=== PATIENT | female | born 1970 | race Two or more races ===

== ENCOUNTER 2023-05-08 08:06 | Outpatient (OUT) | payer BC, SELFPAY ==
[2023-05-08 08:39] LABS: Basophils Absolute Auto 0.1 10^3/uL (0.0-0.1); Basophils Percent Auto 0.7 % (0.2-2.0); Eosinophils Absolute Auto 0.2 10^3/uL (0.0-0.7); Eosinophils Percent Auto 2.6 % (0.9-7.0); Hematocrit 37.6 % (36.0-48.0); Hemoglobin 12.4 g/dL (12.0-16.0); Immature Granulocytes Abs Auto 0.03 10^3/uL (0.00-0.03); Immature Granulocytes Pct Auto 0.3 % (0.0-0.5); Lymphocytes Absolute Auto 1.8 10^3/uL (1.2-3.8); Lymphocytes Percent Auto 19.9 % (20.5-60.0); Mean Corpuscular Hemoglobin 32.5 pg (26.7-34.0); Mean Corpuscular Volume 98.4 fL (81.0-99.0); Mean Platelet Volume 9.2 fL (9.5-13.5); Monocytes Absolute Auto 0.7 10^3/uL (0.3-0.8); Monocytes Percent Auto 7.8 % (1.7-12.0); Neutrophils Absolute Auto 6.1 10^3/uL (1.4-6.5); Neutrophils Percent Auto 68.7 % (43.0-75.0); Platelet Count 386 10^3/uL (150-450); Red Blood Count 3.82 10^6/uL (4.20-5.40); White Blood Count 8.9 10^3/uL (4.0-11.0)
[2023-05-08 08:58] LABS: Estimated Average Glucose 114 mg/dL; Glycohemoglobin A1C 5.6 % (4.5-6.2)
[2023-05-08 13:42] LABS: Alanine Aminotransferase 113 U/L (14-59); Albumin Level 3.6 g/dL (3.4-5.0); Alkaline Phosphatase 84 U/L (46-116); Anion Gap 13.2; Aspartate Amino Transferase 31 U/L (15-37); BUN Creatinine Ratio 23.6; Bilirubin Total 0.4 mg/dL (0.2-1.0); Calcium 8.6 mg/dL (8.5-10.1); Carbon Dioxide 25.7 mmol/L (21.0-32.0); Chloride 104 mmol/L (98-107); Chol HDL Ratio 4.1; Cholesterol 236 mg/dL (<=200); Estimated GFR (African America >60 (>=60); Estimated GFR (Non-African Ame >60 (>=60); Free T3 2.72 pg/mL (2.18-3.98); Globulin 3.7 g/dL; Glucose 93 mg/dL (74-106); HDL Cholesterol 57 mg/dL (40-60); Potassium 3.9 mmol/L (3.5-5.1); Sodium 139 mmol/L (136-145); Thyroid Stimulating Hormone 1.668 uIU/mL (0.358-3.740); Total Protein 7.3 g/dL (6.4-8.2); Triglycerides 219 mg/dL (<=150); VLDL CHOLESTEROL 43.8 mg/dL
== END 2023-05-08 08:07 | disposition home or self-care (01) ==
LOC: LAB 08:09
PROVIDERS: PCP Family Medicine; Visit Provider Family Medicine
DX: Z00.00 Encounter for general adult medical examination without abnormal findings (principal)
CPT/HCPCS: 36415; 80053; 80061; 83036; 83540; 84436; 84443; 84481; 85025

== ENCOUNTER 2023-05-10 16:07 | Outpatient (REF) | payer BC, SELFPAY ==
[2023-05-11 16:36] LABS: Occult Blood Negative
== END 2023-05-10 16:08 | disposition home or self-care (01) ==
LOC: LAB 16:07
PROVIDERS: PCP Family Medicine; Visit Provider Family Medicine
DX: Z00.00 Encounter for general adult medical examination without abnormal findings (principal)
CPT/HCPCS: G0328

== ENCOUNTER 2023-12-06 09:44 | Outpatient (OUT) | payer BC, SELFPAY ==
[2023-12-06 10:18] LABS: Estimated Average Glucose 120 mg/dL; Glycohemoglobin A1C 5.8 % (4.5-6.2)
[2023-12-06 10:37] LABS: Alanine Aminotransferase 29 U/L (14-59); Albumin Globulin Ratio 0.9; Albumin Level 3.5 g/dL (3.4-5.0); Alkaline Phosphatase 76 U/L (46-116); Anion Gap 13.2; Aspartate Amino Transferase 21 U/L (15-37); BUN Creatinine Ratio 26.1; Bilirubin Total 0.3 mg/dL (0.2-1.0); Carbon Dioxide 28.6 mmol/L (21.0-32.0); Chloride 102 mmol/L (98-107); Chol HDL Ratio 3.7; Cholesterol 250 mg/dL (<=200); Estimated GFR (African America >60 (>=60); Estimated GFR (Non-African Ame >60 (>=60); Free T3 2.66 pg/mL (2.18-3.98); Globulin 3.8 g/dL; Glucose 89 mg/dL (74-106); HDL Cholesterol 68 mg/dL (40-60); Potassium 3.8 mmol/L (3.5-5.1); Sodium 140 mmol/L (136-145); Thyroid Stimulating Hormone 1.176 uIU/mL (0.358-3.740); Total Protein 7.3 g/dL (6.4-8.2); Triglycerides 186 mg/dL (<=150); VLDL CHOLESTEROL 37.2 mg/dL
[2023-12-06 16:04] LABS: Basophils Absolute Auto 0.1 10^3/uL (0.0-0.1); Basophils Percent Auto 0.8 % (0.2-2.0); Eosinophils Absolute Auto 0.2 10^3/uL (0.0-0.7); Eosinophils Percent Auto 3.8 % (0.9-7.0); Hematocrit 37.9 % (36.0-48.0); Hemoglobin 12.3 g/dL (12.0-16.0); Immature Granulocytes Abs Auto 0.02 10^3/uL (0.00-0.03); Immature Granulocytes Pct Auto 0.3 % (0.0-0.5); Lymphocytes Absolute Auto 1.4 10^3/uL (1.2-3.8); Lymphocytes Percent Auto 22.2 % (20.5-60.0); Mean Corpuscular HGB Conc 32.5 g/dL (29.9-35.2); Mean Corpuscular Hemoglobin 32.5 pg (26.7-34.0); Mean Platelet Volume 9.8 fL (9.5-13.5); Monocytes Absolute Auto 0.5 10^3/uL (0.3-0.8); Monocytes Percent Auto 8.3 % (1.7-12.0); Neutrophils Absolute Auto 4.1 10^3/uL (1.4-6.5); Neutrophils Percent Auto 64.6 % (43.0-75.0); Platelet Count 423 10^3/uL (150-450); Red Blood Count 3.79 10^6/uL (4.20-5.40); Red Cell Distribution Width 13.1 % (11.0-15.0); White Blood Count 6.4 10^3/uL (4.0-11.0)
[2023-12-07 09:10] LABS: Insulin 9.3 uIU/mL (2.6-24.9)
== END 2023-12-06 09:45 | disposition home or self-care (01) ==
LOC: LAB 09:46
PROVIDERS: PCP Family Medicine; Visit Provider Family Medicine
DX: Z00.00 Encounter for general adult medical examination without abnormal findings (principal)
CPT/HCPCS: 36415; 80053; 80061; 82306; 83036; 83525; 83540; 84436; 84443; 84481; 85025

== ENCOUNTER 2025-01-22 15:42 | Outpatient (OUT) | payer BC, SELFPAY ==
--- OUTSIDE RECORDS SUMMARY | 2023-12-06 09:23 | XMS_ITS ---
Author Organization The [facility] in [place] Address [address] [place] [address] Care Team Providers Care Edging Machine Operator Name Role Phone Michael Flores Primary Care Provider [phone] VERONICA FLORES Unavailable [phone] REASON FOR VISIT Lab results Encounters Encounter Location Date Provider Diagnosis [facility] [address] [place] [address] 12/06/2023 VERONICA FLORES Plan Of Treatment No Information Progress Notes * Laron WALLOB:[birth year] (53 yo F)Acc No.[id number]:12/06/2023 Patient: Leah BAUTISTAJessica CORONA :1970 A ge:53 Y S ex:Female Address:[address] [place] [id number] * true * Date: Generated for Fletcher renae/Kathie/eTransmitting on: 0 01/22/2025 03:49 PM EDT
--- OUTSIDE RECORDS SUMMARY | 2023-12-12 05:36 | XMS_ITS ---
Author Organization The [facility] in [place] Address [address] [place] [address] Care Team Providers Care Buggy Driver Name Role Phone Michael Flores Primary Care Provider VERONICA FLORES Unavailable [phone] Reason For Referral Diagnosis 1 Colon cancer screeni (Z12.11) Referral Organization [facility] Referring Provider First Name VERONICA Referring Provider Last Name MARK Referring Provider Speciality Family Med josy Referred Provider Cornelius Hadley Referred Provider Specialty General Surg dequan Referral Priority Routine REASON FOR VISIT colonoscopy Encounters Encounter Location Date Provider Diagnosis [facility] [address] [place] [address] 12/12/2023 VERONICA FLORES Colon cancer screening Z12.11 Assessments Encounter Date Diagnosis (ICD Code) Assessment Notes Treatment Notes Treatment Clinical Notes Section Notes 12/12/2023 Colon cancer screening (ICD-10 - Z12.11) Plan Of Treatment Referrals Referral Date Details 12/12/2023 12/12/2023Cornelius Progress Notes * Laron WALLOB:[birth year] (53 yo F)Acc No.[id number]:12/12/2023 Patient: Jessica CHILDRESS :1970 A ge:53 Y S ex:Female Address:[address] [place] [phone] Subjective: * Chief Complaints: * C olonoscopy * Medical History: * Surgical History: * Hospitalization/Major Diagno stic Procedure: * Medications: Objective: * Vitals: * Physical Examination: Assessment: * Assessment: 1. C on cancer screening - Z12.11 (Primary) Plan: * Treatment: * Procedure Codes: * true * Date: Generated for Fletcher renae/Kathie/[place] on: 0 01/22/2025 03:49 PM EDT Consultation Request Notes Referral Date Referring Provider Referred Provider Not es 12/12/2023 VERONICA FLORES Michael
--- OUTSIDE RECORDS SUMMARY | 2025-01-22 10:00 | XMS_ITS ---
Author Organization The [facility] in [place] Address [address] [place] [address] Care Team Providers Care Certified Diabetes Educator Name Role Phone DerekmengMichael Primary Care Provider Allergies No Known Allergies REASON FOR VISIT hit head on sunday on bathroom sink above the left taoism- tingling in face and arms since then, Has also has neck pain on the right side and moves down to the shoulder area Medications Medication SIG (Take, Route, Fr equency, Duration) Notes Start Date End Date Status Estradiol 1 mg TAKE 1 TABLET DAILY Active Social History Tobacco Use: Social History Observation Description Date Details (start date - stop date) Never Smoker NA - NA Tobacco Use/Smoking Question Answer Notes Patient is a nonsmoker Problems Problem Type SNOMED Code ICD Code Onset Dates Problem Status W/U Status Risk Notes Problem Concussion injury of brain (082340125) Concussion (S06.0X9A) Active confirmed Vital Signs Blood pressure systolic 152 mm Hg 01/23/20 25 Blood pressure diastolic 96 mm Hg 025 Height 63 in 01/22/2025 Weight 157.2 lbs 01/22/2025 BMI 27.84 kg/m2 01/22/2025 Encounters Encounter Location Date Provider Diagnosis [facility] [address] [place] [address] 01/22/2025 Michael Ramirez Concussion S06.0X9A Assessments Encounter Date Diagnosis (ICD Code) Assessment Notes Treatment Notes Treatment Clinical Notes Section Notes 01/22/2025 Concussion (ICD-10 - S06.0X9A) Plan Of Treatment Pending Test Test Name Order Date CT Brain w/o Contrast 01/22/2025 Progress Notes * Laron WALLOB:[birth year] (54 yo F)Acc No.[id number]:01/22/2025 UNLOCKED PROGRESS NOTE Progress Note Patient: Jessica CHILDRESS Provider: Giovani Ramirez ([facility])MD :1970 A ge:54 Y S ex:Female Date:01/22/2025 Address:[address] [place], [place] [id number] Check In:02:48 PM ESTCheck O ut:03:27 PM EST Subjective: * Chief Complaints: * 1 . Hit head on sunday on bathroom sink above the left taoism- tingling in face and arms since then. 2. Has also has neck pain on the right side and moves down to the shoulder area. * HPI: D epression Screening: PHQ-2 (2015 Edition) L ittle interest or pleasure in doing things??Not at all F eeling down, depressed, or hopeless? N ot at all T otal Score 0 tinglin in area of swelling after hitting head n- 5 days out - stil has headahc dnad now withpai and tinglin in arm and legs s with sym,ptosm 4 says - out- needs CT head. * ROS: E ENT: hearing changes d enies. v isual changes d enies.?non-healing mouth sores d enies. s wollen glands or neck lumps d enies. h oarseness d enies. s ore throat d enies. d ifficulty swallowing d enies. n ose bleeds d enies. n chente congestion d enies. e ar ache d enies. e ar discharge?denies. r inging in ears d enies. l ight sensitivity d enies. e ye pain d enies. b lurring d enies. e ye irritation d enies. d ouble vision d enies.?vision loss d enies. G eneral/Constitutional: Sweats: D enies. F atigue d enies. S leep problems d enies. A norexia d enies. M alaise d enies. W eight loss d enies.?Fatigue or Weakness d enies. F ever or Chills d enies. C ardiovascular: Shortness of Breath w/lying flat d enies. L ightheadedness/dizziness d enies. C hest tightness/ heavy pressure d enies. S welling of legs, ankles, or feet d enies. W aking up with shortness of breath d enies. C hest pain denies. P alpitations d enies. W eight gain d enies. R espiratory: Chronic or frequent cough d enies. C oughing up blood?denies. D ifficulty breathing d enies. P roductive cough d enies. S noring?denies. S hortness of breath that awakens from sleep (PND) d enies. C hest pain d enies. S putum production d enies. W heezing d enies. M usculoskeletal: Joint pain d enies. J oint Fluid d enies. B ack pain d enies. K nee pain d enies. N debora pain d enies. J oint Stiffness d enies. M uscle cramps d enies. W eakness of muscles d enies. A rthritis d enies. M uscle aches d enies. P ain in shoulder(s) d enies. S wollen joints d enies. * Medical History: K NEE DERANGEMENT, LEIOMYOMA, VERTIGO, SIALOLITHIASIS. * Surgical History: C HOLECYSTECTOMY , Hysterectomy- partial , Knee scopes- right , colonoscopy 03-17-24. * Hospitalization/Major Diagno stic Procedure: D enies Past Hospitalization. * Family History: F ather: alive, Hypercholesterolemia, diagnosed with Unspecified heart disease. M other: alive, Uterine and breast cancer, Hypercholesterolemia, diagnosed with Unspecified heart disease. Sister(s): alive, Vertigo, scoliosis. S on(s): alive. D aughter(s): alive. 4 sister(s) . 2 son(s) , 1 daughter(s) . . * Social History: T obacco Use: T obacco Use/Smoking P atient is a n onsmoker * Medications: T aking Estradiol 1 mg Tablet TAKE 1 TABLET DAILY , Medication List reviewed and reconciled with the patient * Allergies: N .K.D.A. Objective: * Vitals: W t:157.2lbs, Ht: 63 in, BP:152/96mm Hg, BMI:27.84Index, Ht-cm: 160.02 cm, Wt-k.31 kg. * Examination: P hysical Exam: GENERAL: w ell developed, well nourished, in no acute distress. HEAD: n ormocephalic/atraumatic. EYES: p upils equal, round and reactive to light, conjunctivae and sclerae normal. EARS: n o deformity or lesion of external ear, canals and TM appear normal bilaterally, TM's intact, not inflamed with normal light reflex, hearing grossly normal to conversational speech. NOSE: n o deformity, discharge, inflammation, or lesions.? MOUTH: m ucous membranes moist, normal oropharynx and posterior pharynx without lesions or exudates, tongue normal, dentition normal. NECK: n debora supple, no masses or palpable cervical nodes, trachea midline, thyroid without nodules, masses, tenderness, or enlargement. CHEST: n o chest wall deformity, no chest wall tenderness.? LUNGS: n ormal respiratory effort and clear to auscultation, no wheezes, rales, or rhonchi, good air exchange. CARDIO: r egular rate and rhythm, normal S1 and S2, nor murmur, rub, or gallop. PULSES: n ormal capillary refill. ABDOMEN: s oft, non-distended, non-tender, no masses. MUSCULOSKELETAL: n o deformity or scoliosis noted, normal range of motion, joints normal, no erythema, edema, effusion, or ecchymosis. EXTREMITY: n o clubbing, cyanosis, edema, or deformity with normal ROM in both upper and lower bilateral extremities. NEUROLOGIC: g rossly normal. SKIN: n o rashes, ulcerations, or suspicious lesions. LYMPH NODES: n o cervical adenopathy, nodes normal. MENTAL STATUS: a lert and oriented x3, normal mood and affect. Assessment: * Assessment: 1. C oncussion - S06.0X9A (Primary) Plan: * Treatment: * Preventive Medicine: Screenings/Counseling: B RI ACTION PLAN Above Normal BMI Follow-up D ietary management education, guidance, and counseling * * Electronic signature of Michael Ramirez MD, [phone] on 01/22/2025 at 03:49 PM EDT Sign off status: Pending Visit Status: C HK (Check Out) * Provider: Giovani Ramirez ([facility])MD Date: 0 01/22/2025 Generated for Printi ng/Faxing/eTransmitting on: 0 01/22/2025 03:49 PM EDT History and Physical Notes * HPI (History of Present Illness) Category Sub-Category Detail Notes Category Not es Depression Screening PHQ-2 (2015 Edition) Little interest or pleasure in doing things?: Not at all tinglin in area of swelling after hitting head n- 5 days out - stil has headahc dnad now withpai and tinglin in arm and legs s with sym,ptosm 4 says - out- needs CT head Feeling down, depressed, or hopeless?: N ot at all Total Score: 0 Examination Category Sub-Category Detail Notes Category Not es Physical Exam GENERAL: well developed, well nourished, in no acute distress HEAD: normocephalic/atraum atic EYES: pupils equal, round and reactive to light, conjunctivae and sclerae normal EARS: no deformity or lesi on of external ear, canals and TM appear normal bilaterally, TM's intact, not inflamed with normal light reflex, hearing grossly normal to conversational speech NOSE: no deformity, discha rge, inflammation, or lesions MOUTH: mucous membranes cass st, normal oropharynx and posterior pharynx without lesions or exudates, tongue normal, dentition normal NECK: neck supple, no mass es or palpable cervical nodes, trachea midline, thyroid without nodules, masses, tenderness, or enlargement CHEST: no chest wall deform ity, no chest wall tenderness LUNGS: normal respiratory e ffort and clear to auscultation, no wheezes, rales, or rhonchi, good air exchange CARDIO: regular rate and rhy thm, normal S1 and S2, nor murmur, rub, or gallop PULSES: normal capillary ref ill ABDOMEN: soft, non-distended, non-tender, no masses RECTAL: MUSCULOSKELETAL: no deformity or scol iosis noted, normal range of motion, joints normal, no erythema, edema, effusion, or ecchymosis EXTREMITY: no clubbing, cyanosi s, edema, or deformity with normal ROM in both upper and lower bilateral extremities NEUROLOGIC: grossly normal SKIN: no rashes, ulceratio ns, or suspicious lesions LYMPH NODES: no cervical adenopat hy, nodes normal MENTAL STATUS: alert and oriented x 3, normal mood and affect
--- OUTSIDE RECORDS SUMMARY | 2025-01-22 15:49 | XMS_ITS | Clinical Summary ---
Author Organization [facility] Address [id number] [address] [place] [address] Care Team Providers Care Ice Grinder Name Role Phone Unavailable Primary Care Provider Unavailabl e Social History Tobacco Use Types Packs/Day Years Used Date Smoking Tobacco: Never Assessed Childcare Answer Date Recorded Childcare Unknown 06/09/2019 Employment Answer Date Recorded Employment Unknown 06/09/2019 Purpose - Life Answer Date Recorded Purpose and direction in life Unknown Comments Unknown Sex and Gender Information Value Date Recorded Sex Assigned at Not on file Legal Sex Female 10:28 AM EDT Gender Identity Not on file Sexual Orientation Not on file Plan of Treatment Not on file Medical Devices Not on file
--- OUTSIDE RECORDS SUMMARY | 2025-01-22 15:49 | XMS_ITS | Clinical Summary ---
Author Organization [facility] Address [address] [place] [address] Care Team Providers Care Movie Operator Name Role Phone Unavailable Primary Care Provider Unavailabl e Social History Tobacco Use Types Packs/Day Years Used Date Smoking Tobacco: Never Assessed Comments Unknown Sex and Gender Information Value Date Recorded Sex Assigned at Not on file Legal Sex Female 6:47 PM EDT Gender Identity Not on file Sexual Orientation Not on file Last Filed Vital Signs Vital Sign Reading Time Taken Comments Blood Pressure 130/82 12/20/2022 12:00 PM EDT Pulse - - Temperature - - Respiratory Rate - - Oxygen Saturation - - Inhaled Oxygen Concentration - - Weight 69.4 kg (153 lb) 12/20/2022 12:00 PM EDT Height 162.6 cm (5' 4 ) 12/20/2022 12:00 PM EDT Body Mass Index 26.26 12/20/2022 12:00 PM EDT Plan of Treatment Not on file Insurance [facility]
--- OUTSIDE RECORDS SUMMARY | 2025-01-22 15:49 | XMS_ITS | Patient Health Record ---
Author Organization The [facility] in [place] Address [address] [place] [address] Care Team Providers Care Coremaker Experimental Name Role Phone Michael Ramirez Primary Care Provider [phone] Allergies No Known Allergies Reason For Referral No Information Medications Medication SIG (Take, Route, Fr equency, Duration) Notes Start Date End Date Status Estradiol 1 mg TAKE 1 TABLET DAILY Active Social History Tobacco Use: Social History Observation Description Date Details (start date - stop date) Never Smoker NA - NA Tobacco Use/Smoking Question Answer Notes Patient is a nonsmoker Alcohol Screen (Audit-C) Question Answer Notes Did you have a drink containing alcohol in the p ast year? Yes How often did you have a dri nk containing alcohol in the past year? Monthly (2 points) Points 2 Interpretation Negative AUDIT-C (Standard) Question Answer Notes Did you have a drink contain ing alcohol in the past year? Yes How often did you have six o r more drinks on one occasion in the past year? Never (0 point) How many drinks did you have on a typical day when you were drinking in the past year? 1 or 2 drinks (0 point) How often did you have a dri nk containing alcohol in the past year? 2 to 4 times a month (2 points) Points 2 Interpretation Negative Problems Problem Type SNOMED Code ICD Code Onset Dates Problem Status W/U Status Risk Notes Problem Well adult (717895574) Well adult (Z00.00) Active confirmed Problem Shingles (3680095) Shingles (B02.9) Active confirmed Problem Concussion injury of brain (038481946) Concussion (S06.0X9A) Active confirmed Problem Peripheral vertigo (76858545) Peripheral vertigo (H81.399) Active confirmed Problem Derangement of knee (06051166) Knee derangement (M23.90) Active confirmed Problem 00929291 Pure hypercholesterole vidya, unspecified (E78.00) Active confirmed Problem Bizarre leiomyoma (32511760) 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 Problem Parotid sialolithiasis (706656557) 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) Active confirmed Vital Signs Blood pressure diastolic 96 mm Hg 01/22/2025 Height 63 in 01/22/2025 Blood pressure systolic 152 mm Hg 01/22/2025 Weight 157.2 lbs 01/22/2025 BMI 27.84 kg/m2 01/22/2025 Encounters Encounter Location Date Provider Diagnosis [facility] [address] [place] [address] 01/22/2025 Michael Hoy Concussion S06.0X9A Assessments Encounter Date Diagnosis (ICD Code) Assessment Notes Treatment Notes Treatment Clinical Notes Section Notes 01/22/2025 Concussion (ICD-10 - S06.0X9A) Plan Of Treatment Pending Test Test Name Order Date CMP (COMPLETE METABOLIC PANEL) 3 CMP (COMPLETE METABOLIC PANEL) 4 HEMOGLOBIN A1C (GLYCO) 04/30/2023 HEMOGLOBIN A1C (GLYCO) 12/06/2023 IRON, TOTAL 04/30/2023 IRON, TOTAL 12/06/2023 LIPID PANEL (CHOL/TRIG/HDL/LDL) 12/06/19 24 LIPID PANEL (CHOL/TRIG/HDL/LDL) 04/30/20 23 CBC WITH DIFF 04/30/2023 CBC WITH DIFF 12/06/2023 VITAMIN D, 25 LEVEL (TOTAL) 12/06/2023 Insulin Level 12/06/2023 FSH+LH+Prog+E2 12/06/2023 STOOL OCCULT BLOOD 04/30/2023 CT Brain w/o Contrast 01/22/2025 LIPID PROFILE 05/08/2023 THYROID PANEL (T4/TSH/FREE T3) 4 THYROID PANEL (T4/TSH/FREE T3) 3 Insurance Providers Payer Name Payer Address Payer Phone Subscriber Number Group Number Insured Name Patient Relationship to Insured Coverage Start Date Coverage End Date [facility] [address] [place] [address] [id number] Ethan Wall Spouse - patient is the spouse of the insured 3 Medical (General) History Medical History History ICD Code KNEE DERANGEMENT LEIOMYOMA VERTIGO SIALOLITHIASIS Surgical History Surgery Date(Month/Year) colonoscopy 03-17-24 Knee scopes- right Hysterectomy- partial CHOLECYSTECTOMY
--- NOTE | 2025-01-22 16:15 | CT_ITS ---
The [address] [address] Patient Name: CARINE STEVENS MRN: [id number] date: 1970 Sex: F Assigned Patient Location: CT Current Patient Location: CT Accession/Order Number: [id number] Exam Date: 01/22/2025 17:11 Report Date: 01/22/2025 17:13 At the request of: VERONICA FLORES MD Procedure: CT head/brain wo con Unenhanced head CT TECHNIQUE: Contiguous axial imaging of the head. The CT exam was performed using one or more the following dose reduction techniques: Automated exposure control, adjustment of the MA and/or Kv according to patient size, or use of the iterative reconstruction technique. COMPARISON: 09/18/2022 HISTORY: Headache and dizziness. Head injury VENTRICLES: Within normal limits ATROPHY: None BRAIN PARENCHYMA: Adequate guevara-white matter differentiation identified. HEMORRHAGE: None HERNIATION: No mass effect or herniation INFARCTION: No recent vascular distribution infarction is seen. EXTRA-AXIAL FLUID COLLECTIONS None MIDBRAIN: Unremarkable MAGGIE: Unremarkable MEDULLA: Unremarkable SINUSES: Unremarkable ORBITS: Grossly unremarkable MASTOIDS: Unremarkable BONY STRUCTURES Intact ADDITIONAL FINDINGS: CT/CT head/brain wo con IMPRESSION: No acute findings. Impression dictated by: Darwin Lomeli M.D. 01/22/2025 5:13 PM Dictation Location: [place] [address] Electronically authenticated by: [id number] Y Date: 01/22/2025 17:13
--- OUTSIDE RECORDS SUMMARY | 2025-01-22 16:18 | XMS_ITS | CCD ---
Author Organization [facility] Care Team Providers Care Chief Substation Operator Name Role Phone ASHLEY ., DR MARTIN Primary Care Unavailable FAWSHAIKH Jennie GRAF Admitting Unavailable FACYN BROCKIKH H Attending Unavailable ELIZABETH REES Consulting Unavailable TAYLOR RINALDI Consulting Unavailable ANTHONY AZUL Consulting Unavailable KARASIK ., DR SAUER Admitting Unavailabl e KARASIK ., DR SAUER Attending Unavailabl e ASHLEY ., DR MARTIN Primary Care Unavailable KARASIK ., DR SAUER Consulting Unavailabl e KAREVELINK ., DR SAUER Admitting Unavailabl e KARASIK ., DR SAUER Attending Unavailabl e ASHLEY ., DR MARTIN Primary Care Unavailable KARASIK ., DR SAUER Consulting UnavailVeronica Tracey Primary Care Physician Cornelius BAI Referring Unavailable Cornelius BAI Attending Unavailable Cornelius BAI Admitting Unavailable Cornelius BAI Attending Unavailable Veronica Ramirez Referring Unavailable Allergies Allergy Classification Reported Allergen(s) Allergy Type Date of Onset Reaction(s) Facility (1 source) No Known Medication Allergies; Translations: [No Known Medication Allergies] Propensity to adverse reactions (disorder) [facility] Repository Medications Current Medications Medication Drug Class(es) Dates Sig (Normalized) Sig (Original) estradiol 1 mg oral tablet (2 sources) Estrogen Start: 12-19-2023 estradiol 1 mg Tab 1 mg = 1 tab(s), Oral, Daily, 90 tab(s), 0 Refill(s), Refills(s) 0 Start Date: 12/19/23 Status: Ordered Problems Active Problems Problem Classification Problem Date Documented Date Episodic/Chronic Disorders of lipid metabolism (2 sources) Pure hypercholesterolemia 12-19-2023 Chroni c Immunizations and screening for infectious disease (1 source) Encounter for screening for human papillomavirus (HPV); Translations: [ENC SCREENING HUMAN PAPILLOMAVIRUS] Onset: 3 Episodic Other nutritional; endocrine; and metabolic disorders (2 sources) Overweight 12-19-2023 Episodic Other nutritional; endocrine; and metabolic disorders (2 sources) Overweight in adulthood with body mass index of 25 or more but less than 30 12-25-2023 Episodic Other screening for suspected conditions (not mental disorders or infectious disease) (6 sources) Encounter for screening for malignant neoplasm of cervix; Translations: [Screening for malignant neoplasm of colon done] Onset: 3 Episodic Unclassified (2 sources) Patient encounter status 12-25-2023 Past or Other Problems Problem Classification Problem Date Documented Da te Episodic/Chronic Other nervous system disorders (4 sources) Paresthesia of skin; Translations: [PARESTHESIA OF SKIN] Onset: 09-19-2022 Episodic Results Test Name Value Interpretation Reference Range Facility Reminderson 03-18-2024 Reminders Reminders From: Shiloh Braga LPN To: N - Clinical; Sent: 03/18/2024 07:39:18 EDT Show up: 02/14/2034 07:00:00 EDT Subject: colonoscopy recall Due Date/Time: 03/17/2034 07:00:00 EDT Reminder/Recall Patient due for screening colonoscopy 03/17/2034. Normal [facility] Discharge Instructionson Discharge Instructions Discharge Instructions CARINE STEVENS :1970 Visit Date:03/17/2024 Inpatient Discharge Instructions Your Care Team Admitting Physician - Cornelius BAI MD Referring Physician - Cornelius BAI MD Reason for Your Visit SCREENING Your Diagnosis Encounter for screening for malignant neoplasm of colon This Is Your Medications List estradiol (estradiol 1 mg Tab) Procedure History Colonoscopy (03/17/2024), Arthroscopy of knee, Cervical biopsy, Cholecystectomy, Vaginal hysterectomy. What to do next Instructions From Your Doctor Event Name Event Result Discharge Activity Resume normal activities in 24 hours, Arrange for a responsible adult supervision for 24 hours Discharge Restrictions No driving for 24 hrs, Do not operate machinery or tools, Do not make important decisions for 24 hours, Do not drink alcoholic beverages for 24 hours Discharge Diet(s) Regular Call Your Doctor For Persistent or heavy bleeding, Temperature above 101.5 degrees, Severe pain at the operative site, Persistent vomiting Discharge Instructions Discharge Instructions New Follow Up Appointments after Discharge Follow Up with Cornelius BAI When: Only if needed Where: [address], [address] [facility] [address] [place] [address]- Business (1) Medications What How Much When Instructions Next Dose Unchanged estradiol (estradiol 1 mg Tab) 1 Tablets By Mouth Every day 90 tab(s), 0 Refill(s) Test Results No qualifying data available. Allergies No Known Allergies No Known Medication Allergies Problems Ongoing - Any problem that you are currently receiving treatment for. BMI 26.0-26.9,adult Over weight Pure hypercholesterolemia Screening for malignant neoplasm of colon Education Materials Colonoscopy Care After Surgery Please read the instructions outlined below and refer to this sheet in the next few weeks. These discharge instructions provide you with general information on caring for yourself after you leave the hospital. Your doctor may also give you specific instructions. While your treatment has been planned according to the most current medical practices available, unavoidable complications occasionally occur. If you have any problems or questions after discharge, please call your doctor. ACTIVITY You may resume your regular activity, but move at a slower pace for the next 24 hours. Take frequent rest periods for the next 24 hours. Walking will help get rid of the air and reduce the bloated feeling in your abdomen (belly). No driving for 24 hours (because of the anesthesia (medicine) used during the test). You may shower. Do not sign any important legal documents or operate any machinery for 24 hours (because of the anesthesia used during the test). NUTRITION Drink plenty of fluids. You may resume your normal diet as instructed by your doctor. Begin with a light meal and progress to your normal diet. Heavy or fried foods are harder to digest and may make you feel nauseated (sick to your stomach). Avoid alcoholic beverages for 24 hours or as instructed. MEDICATIONS You may resume your normal medications unless your doctor tells you otherwise. WHAT YOU CAN EXPECT TODAY Some feelings of bloating in the abdomen. Passage of more gas than usual. Spotting of blood in your stool or on the toilet paper. FOLLOW-UP Your doctor will discuss the results of your test with you. SEEK IMMEDIATE MEDICAL ATTENTION IF: There is more than a spotting of blood in your stool. There is abdominal distention (your abdomen is swollen). There is vomiting. You have a temperature over 101.5 F. There is abdominal pain or discomfort that is severe or gets worse throughout the day. Diverticulosis Many people have small pouches in their colon called diverticulum. The diverticulum bulge outward through weak spots in the colon. You could have one or more of these pouches in the colon. The condition of having these pouches in the colon is called diverticulosis or diverticular disease. Diverticulosis is usually diagnosed by tests to evaluate something else. For example, you may have had a colonoscopy to screen for colon cancer when the diverticulosis was found. Most people with diverticulosis do not have any discomfort or problems. If symptoms develop, they may include mild cramps, bloating, and constipation. A complication of this condition is called diverticulitis. This is when the diverticulum become inflamed and infected. How to treat diverticulosis: Increasing the amount of fiber in the diet may reduce symptoms of diverticulosis and prevent complications such as diverticulitis (infected diverticuli). Fiber keeps stool soft and lowers pressure inside the colon so that bowel contents can move through easily. You should eat 20 to 35 grams of fiber each day. The table below shows the amount of fiber in (more content not included)... Normal [facility] Comment on above: Result Comment: Elec tronically Signed By: Ifeanyi MARTINEZ, Nurys Matute\.br\Date and Time Signed: 03/17/24 08:19 EDT Inpatient Patient Summaryon 03-17-2024 Inpatient Patient Summary Inpatient Patient Summary [address] [address] [facility] Clinical Discharge Instructions PERSON INFORMATION Name: CARINE STEVENS [facility]#:[id number] PHYSICIANS Admitting Physician: Cornelius BAI MD Attending Physician: Cornelius BAI MD PCP: Ashley ROCKWELL, Veronica Discharge Diagnosis: Encounter for screening for malignant neoplasm of colon Comment: PATIENT EDUCATION INFORMATION Instructions: Medication Leaflets: Follow up: With: Address: When: Cornelius BAI [address] [place] [address], [address], [address] [address] Business (1) , only if needed MEDICATION LIST Medications to Continue with No Changes Other Medications estradiol (estradiol 1 mg Tab) 1 Tablets By Mouth every day. 90 tab(s), 0 Refill(s)., Responsible Provider: VERONICA RAMIREZ Comment: Pancho [facility] Main OR Intraoperative Recor don 03-17-2024 Main OR Intraoperative Record Main OR Intraoperative Record IntraOp Document Type FT Summary Primary Physician: Cornelius BAI MD Finalized Date/Time: 03/17/24 11:55:43 Pt. Name: CARINE STEVENS/Sex: 1970 Female Med Rec #: [id number] Physician: Cornelius BAI MD Financial #: [id number] Pt. Type: O Room/Bed: / Admit/Disch: 03/17/24 06:56:59 - Institution: Case Times FT Entry 1 Patient Times In Room 03/17/24 07:58:00 Out Room 03/17/24 08:17:00 Procedure Times Start 03/17/24 08:01:00 Stop 03/17/24 08:14:00 Anesthesia Times Start 03/17/24 07:58:00 Stop 03/17/24 08:17:00 Time at [facility] 03/17/24 08:07:00 Last Modified By: Adilson Ramos RN 03/17/24 08:15:50 General Comments: 03/17/24 Chart opened to review and send charges LRoth CSFA Case Attendance FT Entry 1 Entry 2 Entry 3 Case Attendee Gavin NUNES, Robbie BAI MD, Cornelius Ramos RN, Adilson Aviles Role Performed Anesthesiologist Surgeon - Primary Administrative Sales Assistant - Primary Brake Engineer Time In 03/17/24 07:58:00 03/17/24 07:58:00 03/17/24 07:58:00 Time Out 03/17/24 08:17:00 03/17/24 08:17:00 03/17/24 08:17:00 Procedure COLONOSCOPY(.) COLONOSCOPY(.) COLONOSCOPY(.) Comments Dr. Meeks supervising case Last Modified By: Richard MARTINEZ, Adilson Ramos RN, Adilson Owens RN 03/17/24 08:15:59 03/17/24 08:15:59 03/17/24 08:15:59 Entry 4 Case Attendee Vannesa Vo Role Performed Scrub - Primary Time In 03/17/24 07:58:00 Time Out 03/17/24 08:17:00 Procedure COLONOSCOPY(.) Comments Last Modified By: Adilson Ramos RN 03/17/24 08:15:59 Perioperative Protocols FT Pre-Care Text: Implements protective measures prior to operative or invasive procedure, confirms identity before the operative or invasive procedure, verifies operative procedure, surgical site, and laterality Entry 1 Procedure(s) COLONOSCOPY(.) Patient Identity Birthday, ID Band Verified (select at Check, Patient least 2): Participation Consents / H and P Anesthesia Consent, Operative Site N/A Verified H&P, Surgery/Procedure Marking Verified Consent Surgical Site No Laterality Verified n/a Verified Procedure Verified Yes Correct Patient Yes Position Verified Availability Equipment, Medication Prep Dry n/a Verified (If Applicable) PreOp Antibiotic No Time Out Robbie Edouard Given Participants BHUMIKA Ramos MD, Richard Gonzalez RN, Tavo Cartagena Kirstyn K Time Out Complete 03/17/24 07:59:00 Outcomes Met? Yes Last Modified By: Adilson Ramos RN 03/17/24 08:02:08 Post-Care Text: The patient is free from signs and symptoms of injury caused by extraneous objects Allergy Information FT Pre-Care Text: Verifies allergies Entry 1 Allergies Reviewed? Yes Allergies Reviewed Self/Patient With Outcomes Met? Yes Last Modified By: Adilson Ramos RN 03/17/24 08:02:17 Post-Care Text: The patient received appropriate medication(s) safely administered during the perioperative period Surgical Procedures FT Entry 1 Procedure Description Procedure COLONOSCOPY Modifiers . Surgeon Description Colonoscopy Primary Procedure Yes Primary Surgeon Cornelius BAI MD Start 03/17/24 08:01:00 Stop 03/17/24 08:14:00 Anesthesia Type General Surgical Service General Wound Class 2 - Clean-Contaminated Last Modified By: Adilson Ramos RN 03/17/24 08:14:49 General Case Data FT Pre-Care Text: Classifies surgical wound, implements aseptic technique, initiates traffic control Entry 1 Case Information OR ENDO 2 FT Case Level Level 2 Wound Class 2 - Clean-Contaminated Specialty General ASA Class 2 Preop Diagnosis Colon cancer screening Postop Same As Preop No Postop Diagnosis Mild diverticulosis Outcomes Met? Yes Last Modified By: Adilson Ramos RN 03/17/24 08:14:45 Post-Care Text: The patient is free from signs and symptoms of infection Skin Assessment (Pre Procedure) FT Pre-Care Text: Implements protective measures to prevent skin/ tissue injury due to thermal or mechanical sources Evaluates for signs and symptoms of physical injury to skin and tissue Entry 1 Skin Integrity Dry, Warm Skin Abnormality No Outcomes Met? Yes Last Modified By: Adilson Ramos RN 03/17/24 08:02:47 Post-Care Text: The patient is free from signs and symptoms of injury caused by extraneous objects Patient Positioning FT Pre-Care Text: Identifies physical alterations that require additional precautions for procedure-specific positioning, verifies presence of prosthetics or corrective devices, positions the patient, evaluates the patient for signs and symptoms of injury as a result of positioning Entry 1 Procedure COLONOSCOPY(.) Body Position Lateral, right side up Feet Uncrossed? Yes Left Arm Position Resting at Side Right Arm Position Resting at Side Left Leg Position Extended Right Leg Position Extended Positioning Device Safety Strap, Pillow Under Head Large Press Points Checked Yes By (more content not included)... Normal [facility] Main OR PACU I Recordon Main OR PACU I Record Main OR PACU I Record PACU Phase I Document Type FT Summary Primary Physician: Cornelius BAI MD Finalized Date/Time: 03/17/24 09:19:03 Pt. Name: CARINE STEVENS/Sex: 1970 Female Med Rec #: [id number] Physician: Cornelius BAI MD Financial #: [id number] Pt. Type: O Room/Bed: / Admit/Disch: 03/17/24 06:56:59 - Institution: Case Times PACU I FT Pre-Care Text: Identifies barriers to communication and implements measures to provide psychological support Develops individualized plan of care, and ensures continuity of care Maintains patient's dignity and privacy, and maintains patient confidentiality Identifies and reports philosophical, cultural, and spiritual beliefs and values Identifies individual values and wishes concerning care Implements aseptic technique, and administers prescribed antibiotic therapy and immunizing agents as ordered Evaluates postoperative tissue perfusion Implements thermoregulation measures, and monitors body temperature Evaluates postoperative respiratory status Evaluates postoperative cardiac status Evaluates postoperative neurological status Assesses pain control, collaborated in initiating patient-controlled analgesia and implements alternative methods of pain control Verifies allergies, administers prescribed medications and solutions, evaluates response to medications Entry 1 In PACU I 03/17/24 08:17:00 Discharge from PACU 03/17/24 08:47:00 I Outcomes Met? Yes Last Modified By: Nurys Suggs RN 03/17/24 09:18:52 Post-Care Text: The patient demonstrates knowledge of the expected response to the operative or invasive procedure The patient's care is consistent with the individualized perioperative plan of care The patient's right to privacy is maintained The patient's value system, lifestyle, ethnicity, and culture are considered, respected, and incorporated into the perioperative plan of care The patient participates in decisions affecting his or her perioperative plan of care The patient is free from signs and symptoms of infection The patient has wound/tissue perfusion consistent with or improved from baseline levels established preoperatively The patient is at or returning to normothermia at the conclusion of the immediate postoperative period The patient's respiratory function is consistent with or improved from baseline levels established preoperatively The patient's cardiovascular status is consistent with or improved from baseline levels established preoperatively The patient's cardiovascular status is consistent with or improved from baseline levels established preoperatively The patient demonstrates and/or reports adequate pain control throughout the perioperative period The patient received appropriate medication(s), safely administered during the perioperative period Acuity Level PACU I FT Entry 1 Start Time 03/17/24 08:17:00 Stop Time 03/17/24 08:47:00 Acuity Level Acuity Level I Last Modified By: Nurys Suggs RN 03/17/24 09:19:00 Finalized By: Nurys Suggs RN Document Signatures Signed By: Nurys Suggs RN 03/17/24 09:19 Normal [facility] Main OR Preoperative Recordo n 03-17-2024 Main OR Preoperative Record Main OR Preoperative Record Holding Area Document Type FT Summary Primary Physician: Cornelius BAI MD Finalized Date/Time: 03/17/24 07:41:05 Pt. Name: CARINE STEVENS/Sex: 1970 Female Med Rec #: [id number] Physician: Cornelius BAI MD Financial #: [id number] Pt. Type: O Room/Bed: / Admit/Disch: 03/17/24 06:56:59 - Institution: Case Times Holding FT Pre-Care Text: Verifies consent for planned procedure, identifies individual values and wishes concerning care, includes family members in perioperative teaching Secures patient's records' belongings, and valuables, maintains patient's dignity and privacy, and maintains patient confidentiality Entry 1 In Holding 03/17/24 07:30:00 Outcomes Met? Yes Last Modified By: Adilson Ramos RN 03/17/24 07:39:42 Post-Care Text: The patient participates in decisions affecting his or her perioperative plan of care The patient's right to privacy is maintained Surgery Checklist FT Entry 1 Patient Birthday, ID Band Procedure History and Physical, Identification: Check, Patient Verification: Surgical Consent, With Participation Patient NPO after Midnight: No Date/Time: 03/17/24 02:40:00 Results Reviewed yellow liquid bowel Personal Items: Jewelry Comments: results Personal Items wedding band, clothing, Limitations: none Comment: shoes Complaints of Pain: No Pain Comment: denies pain at this time Operative Site n/a Marked By: n/a Marking: Location: n/a Availability Equipment Verified: Does Patient Smoke No Patient states Yes Comment - Adult Ethan- postop adult Supervision supervision available Case Cancelled in No Holding Area see comments below for reason Last Modified By: Adilson Ramos RN 03/17/24 07:41:03 General Comments: pt finished bowel prep at 0240, per patient nothing to eat or drink since MSRN Finalized By: Adilson Ramos RN Document Signatures Signed By: Adilson Ramos RN 03/17/24 07:41 Normal [facility] Outpatient Surgery Discharge Instructionon 03-17-2024 Outpatient Surgery Discharge Instruction Outpatient Surgery Discharge Instruction [address] [address] Patient Discharge Instructions PERSON INFORMATION Name: CARINE STEVENS Date of : 1970 Current Date: 03/17/2024 08:18:34 PHYSICIANS Admitting Physician: Cornelius BAI MD Discharge Diagnosis: Encounter for screening for malignant neoplasm of colon CARINE STEVENS has been given the following list of follow-up instructions, prescriptions, and patient education materials: PATIENT FOLLOW-UP INFORMATION Diet: Regular Discharge Activity: Resume normal activities in 24 hours, Arrange for a responsible adult supervision for 24 hours Discharge Restrictions: No driving for 24 hrs, Do not operate machinery or tools, Do not make important decisions for 24 hours, Do not drink alcoholic beverages for 24 hours Call Your Doctor For: Persistent or heavy bleeding, Temperature above 101.5 degrees, Severe pain at the operative site, Persistent vomiting IF UNABLE TO CONTACT YOUR PHYSICIAN AND YOU FEEL IT IS AN EMERGENCY, GO TO THE NEAREST EMERGENCY ROOM OR CALL 911 I, CARINE STEVENS, have received the attached patient education materials/instructions and have verbalized understanding: May we do a follow up call? Yes No I was present when discharge instructions were given Patient Signature ___ Date Clinican/Nurse Signature Date Follow up: With: Address: When: Cornelius BAI [address] [place] [address], [address], [place] [id number] [facility] (1) , only if needed Pharmacy Information: You may receive a survey from [employer] asking you to rate your care experience. Your feedback is important and will help us understand what we do well and how we can improve the quality of care we provide to you, your loved ones and our community. It?s an honor to serve you. Thank you for choosing [facility] HERE ARE THE MEDICATION CHANGES THAT OCCURRED DURING YOUR HOSPITAL STAY Medications to Continue with No Changes Other Medications estradiol (estradiol 1 mg Tab) 1 Tablets By Mouth every day. 90 tab(s), 0 Refill(s)., Responsible Provider: VERONICA RAMIREZ PATIENT EDUCATION INFORMATION Instructions: Medication Leaflets: [facility] Consent for Procedure/Surger yon 12-26-2023 Consent for Procedure/Surgery [id number] [facility] Formson 12-26-2023 Forms [id number] [facility] Ambulatory Visit Summaryon 0 12-25-2023 Ambulatory Visit Summary CARINE STEVENS :1970 Visit Date:12/25/2023 Ambulatory Visit Instructions Your Care Team Attending Physician - Cornelius BAI MD Primary Care Physician - Veronica Ramirez MD Referring Physician - Veronica Ramirez MD This Is Your Medications List Contact prescribing physician if questions or concerns estradiol (estradiol 1 mg Tab) Procedures Performed Arthroscopy of knee, Cervical biopsy, Cholecystectomy, Vaginal hysterectomy. Discharge Vitals Heart Rate (Peripheral) 72 Respiratory Rate 16 Blood Pressure 116/76 Height 160 cm Height 63 in Weight 68.7 kg Weight 151.14 lb BMI 26.84 What to do next Scheduled Follow-Up Appointments Sunday 8:00 AM EDT Where: [facility] Medications What How Much When Instructions Unchanged estradiol (estradiol 1 mg Tab) 1 Tablets By Mouth Every day 90 tab(s), 0 Refill(s) Contact prescribing physician if questions or concerns Allergies No Known Allergies No Known Medication Allergies Problems Ongoing - Any problem that you are currently receiving treatment for. BMI 26.0-26.9,adult Over weight Pure hypercholesterolemia Patient Survey You may receive a survey via text or e-mail asking about your office visit. Please share your experience with us by completing your survey. We appreciate your feedback and thank you for choosing us for your care. Normal [facility] Physician Referralon 024 Physician Referral [id number] Normal [facility] CARDIAC ASHLEY ADMITon 023 CK [Catalytic activity/Vol] 99 U/L Normal 26-192 [facility] Comment on above: Performed By: #### B DANA CANNON #### [facility] [address] [place] [address] Dr. Alexia Huber CK.MB [Mass/Vol] 0.84 ng/mL Normal <=3.60 [facility] Comment on above: Performed By: #### B DANA CANNON #### [facility] [address] [place] [address] Dr. Alexia Huber HSTROP 4.6 pg/mL Normal 4.0-51.3 [facility] Comment on above: Result Comment: CUT- OFF POINTS HAVE BEEN ESTABLISHED BASED ON THE FOURTH UNIVERSAL DEFINITIONS OF MYOCARDIAL INFARCTION. THE UPPER REFERENCE LIMIT (URL) OF TROPONIN, DEFINED THE 99TH PERCENTILE OF cTnI DISTRIBUTION IN A REFERENCE POPULATION, HAS BEEN CONFIRMED THE DECISION THRESHOLD FOR [place] DIAGNOSIS. Performed By: #### B HOLLY CANNONDM #### [facility] [address] [place] [address] Dr. Alexia Huber AKIL 39 ng/mL Normal 9-82 [facility] Comment on above: Performed By: #### B HOLLY CANNONDM #### [facility] [address] [place] [id number] Dr. Alexia Huber CBC AUTO DIFFon 09-19-2022 BASO # 0.1 103/ul Normal 0.0-0.1 [facility] Comment on above: Performed By: #### C BC #### [facility] [address] [place] [address] Dr. Alexia Huber Basophils/100 WBC (Bld) 0.5 % Normal 0.2-2.0 [facility] Comment on above: Performed By: #### C BC #### [facility] [address] [place] [address] Dr. Alexia Huber EO # 0.2 103/ul Normal 0.0-0.7 [facility] Comment on above: Performed By: #### C BC #### [facility] [address] [place] [address] Dr. Alexia Huber Eosinophils/100 WBC (Bld) 1.4 % Normal 0.9-7.0 [facility] Comment on above: Performed By: #### C BC #### [facility] [address] [place] [address] Dr. Alexia Huber Erythrocyte distribution width (RBC) [Ratio] 12.7 % Normal 11.0-15.0 [facility] Comment on above: Performed By: #### C BC #### [facility] [address] [place] [address] Dr. Alexia Huber Hematocrit (Bld) [Volume fraction] 39.5 % Normal 36.0-48.0 [facility] Comment on above: Performed By: #### C BC #### [facility] [address] [place] [address] Dr. Alexia Huber Hemoglobin (Bld) [Mass/Vol] 12.7 g/dL Normal 12.0-16.0 [facility] Comment on above: Performed By: #### C BC #### [facility] [address] [place] [address] Dr. Alexia Huber IG # 0.03 10e3/ul Normal 0.00-0.03 [facility] Comment on above: Performed By: #### C BC #### [facility] [address] [place] [address] Dr. Alexia Huber IG % 0.2 % Normal 0.0-0.5 [facility] Comment on above: Performed By: #### C BC #### [facility] [address] [place] [address] Dr. Alexia Huber LYMPH # 3.0 103/ul Normal 1.2-3.8 [facility] Comment on above: Performed By: #### C BC #### [facility] [address] [address] [address] Alexia Huber Lymphocytes/100 WBC (Bld) 22.4 % Normal 20.5-60.0 [facility] Comment on above: Performed By: #### C BC #### [facility] [address] [address] [address] Alexia Huber MANUAL DIFF REQ NO Normal [facility] Comment on above: Performed By: #### C BC #### [facility] [address] [address] [address] Alexia Huber MCH (RBC) [Entitic mass] 32.2 pg Normal 26.7-34.0 [facility] Comment on above: Performed By: #### C BC #### [facility] [address] [place] [address] Dr. Alexia Huber MCHC (RBC) [Mass/Vol] 32.2 g/dL Normal 29.9-35.2 [facility] Comment on above: Performed By: #### C BC #### [facility] [address] [place] [address] Dr. Alexia Huber MCV (RBC) [Entitic vol] 100.0 fL Critically high 81.0-99.0 [facility] Comment on above: Performed By: #### C BC #### [facility] [address] [place] [address] Dr. Alexia Huber MONO # 1.0 103/ul Critically high 0.3-0.8 [facility] Comment on above: Performed By: #### C BC #### [facility] [address] [place] [address] Dr. Alexia Huber Monocytes/100 WBC (Bld) 7.4 % Normal 1.7-12.0 [facility] Comment on above: Performed By: #### C BC #### [facility] [address] [place] [address] Dr. Alexia Huber NEUT # 9.1 103/ul Critically high 1.4-6.5 [facility] Comment on above: Performed By: #### C BC #### [facility] [address] [address] [address] Alexia Huber Neutrophils/100 WBC (Bld) 68.1 % Normal 43.0-75.0 [facility] Comment on above: Performed By: #### C BC #### [facility] [address] [address] [address] Alexia Huebr Platelet mean volume (Bld) [Entitic vol] 9.4 fL Critically low 9.5-13.5 [facility] Comment on above: Performed By: #### C BC #### [facility] [address] [address] [address] Alexia Huber PLT 406 103/ul Normal 150-450 [facility] Comment on above: Performed By: #### C BC #### [facility] [address] [place] [address] Dr. Alexia Huber RBC 3.95 106/ul Critically low 4.20-5.40 [facility] Comment on above: Performed By: #### C BC #### [facility] [address] [address] [address] Alexia Huber WBC 13.3 103/ul Critically high 4.0-11.0 [facility] Comment on above: Performed By: #### C BC #### [facility] [address] STROKE HEAD WOon 09-19-[address] STROKE HEAD WO EXAM: CT STROKE HEAD WO CLINICAL INDICATION: Paresthesia COMPARISON: None TECHNIQUE: Axial CT images of the brain were obtained without contrast. Dose reduction techniques were achieved by using automated exposure control and/or adjustment of mA and/or kV according to patient size and/or use of iterative reconstruction technique. FINDINGS: Brain parenchyma: No mass effect or midline shift is seen. Warren-white differentiation is maintained. No findings suspicious for intracranial hemorrhage. No findings suggesting acute stroke. Periventricular hypoattenuation / patchy white matter hypodensities are statistically most often related to small vessel ischemic disease. Ventricles and extra-axial spaces: Ventricles are concordant with sulci. No findings suggesting hydrocephalus. Visualized paranasal sinuses: No findings suggesting acute sinusitis. Mastoid air cells: Clear. Included portions of the orbits:Included portions of the orbits with no evidence of fracture or other acute pathology. Bones: No fracture is seen. Impression: 1. No acute intracranial process visualized. No findings suspicious for acute stroke by noncontrast head CT. If there is high suspicion for acute intracranial pathology, please note that magnetic resonance imaging or other additional evaluation may be more sensitive than noncontrast head CT. Findings relayed to Dr. Rees over telephone by Dr. Rinaldi at 11:30 PM on 09/18/2022. Electronically authenticated by: TAYLOR RINALDI Date: 2022-09-18 23:31 Normal [facility] PROF CHEM 8 (BAS METB)on Anion gap [Moles/Vol] 12.2 mmol/L Normal [facility] Comment on above: Performed By: #### B DAIVS, CMADM #### [facility] [address] [address] [address] Alexia Huber Calcium [Mass/Vol] 9.2 mg/dL Normal 8.5-10.1 [facility] Comment on above: Performed By: #### B DAVIS, CMADM #### [facility] [address] [address] [address] Alexia Huber Chloride [Moles/Vol] 101 mmol/L Normal 98-107 [facility] Comment on above: Performed By: #### B DAVIS, CMADM #### [facility] [address] [address] [address] Alexia Huber CO2 [Moles/Vol] 28.5 mmol/L Normal 21.0-32.0 [facility] Comment on above: Performed By: #### B DAVIS, CMADM #### [facility] [address] [address] [address] Alexia Huber Creatinine [Mass/Vol] 0.64 mg/dL Normal 0.55-1.02 [facility] Comment on above: Performed By: #### B DAVIS, CMADM #### [facility] [address] [address] [address] Alexia Huber EGFR-AF SAMOAN >60 Normal >=60 [facility] Comment on above: Performed By: #### B MP, CMADM #### [facility] [address] [address] [address] Alexia Huber EGFR-NON AF SAMOAN >60 Normal >=60 [facility] Comment on above: Performed By: #### B MP, CMADM #### [facility] [address] [address] [address] Alexia Huber Glucose [Mass/Vol] 99 mg/dL Normal 74-106 [facility] Comment on above: Performed By: #### B MP, CMADM #### [facility] [address] [address] [address] Alexia Huber Potassium [Moles/Vol] 3.7 mmol/L Normal 3.5-5.1 [facility] Comment on above: Performed By: #### B DAVIS, CMADM #### [facility] [address] [address] [address] Alexia Huber Sodium [Moles/Vol] 138 mmol/L Normal 136-145 [facility] Comment on above: Performed By: #### B DAVIS, CMADM #### [facility] [address] [address] [address] Alexia Huber Urea nitrogen [Mass/Vol] 13.0 mg/dL Normal 7.0-18.0 [facility] Comment on above: Performed By: #### B DAVIS, CMADM #### [facility] [address] [address] [address] Alexia Huber Urea nitrogen/Creatinine [Mass ratio] 20.3 mg/mg [facility] Comment on above: Performed By: #### B DAVIS, CMADM #### [facility] [address] [address] [address] Alexia Huber PAP ACOG PANEL 2: 30 to 65on 01-02-[address] [facility] Comment on above: Result Comment: Perf ormed at: BA Performed By: #### [id number] #### [facility] [address] [address] [address] Alexia Huber Age Gdln ACOG Testing 30-65 [facility] Comment on above: Performed By: #### [id number] #### [facility] [address] [address] [address] Alexia Huber DIAGNOSIS: Comment Normal [facility] Comment on above: Result Comment: NEGA TIVE FOR INTRAEPITHELIAL LESION OR MALIGNANCY. Performed at: BA Performed By: #### [id number] #### [facility] [address] [address] [address] Alexia Huber HPV Aptima Negative Normal Negative [facility] Comment on above: Result Comment: This nucleic acid amplification test detects fourteen high-risk HPV types (16,18,31,33,35,39,45,51,52,56,58,59,66,68) without differentiation. Performed at: =G Performed By: #### [id number] #### [facility] [address] [place] [address] Dr. Alexia Huber Methodology: Comment Normal [facility] Comment on above: Result Comment: This liquid based ThinPrep(R) pap test was screened with the use of an image guided system. Performed at: WB Performed By: #### [id number] #### [facility] [address] [place] [address] Dr. Alexia Huber Note: Comment Normal [facility] Comment on above: Result Comment: The Pap smear is a screening test designed to aid in the detection of premalignant and malignant conditions of the uterine cervix. It is not a diagnostic procedure and should not be used as the sole means of detecting cervical cancer. Both false-positive and false-negative reports do occur. . Performed at: WB Performed By: #### [id number] #### [facility] [address] [address] [address] Alexia Huber Performed by: Comment Normal [facility] Comment on above: Result Comment: [employer] (ASCP) Performed at: BA Performed By: #### [id number] #### [facility] [address] [address] [address] Alexia Huber Specimen adequacy: Comment Normal [facility] Comment on above: Result Comment: Sati sfactory for evaluation. No endocervical component is identified. Performed at: Performed By: #### [id number] #### [facility] [address] [place] [address] Dr. Alexia Huber Vital Signs Date Time Vital Sign Value Performing Clinician Edie vance 03-17-2024 08:42-0400 Diastolic blood pressure 72 mm[Hg] Cornelius NILL [facility] 03-17-2024 08:42-0400 Heart rate 58 /min Cornelius NILL [facility] 03-17-2024 08:42-0400 Mean blood pressure 88 mm[Hg] Cornelius NILL [facility] 03-17-2024 08:42-0400 Respiratory rate 20 /min Cornelius NILL [facility] 03-17-2024 08:42-0400 SaO2% (BldA) [Mass fraction] 100 % Cornelius NILL [facility] 03-17-2024 08:42-0400 Systolic blood pressure 121 mm[Hg] Cornelius NILL [facility] 03-17-2024 08:30-0400 Diastolic blood pressure 84 mm[Hg] Cornelius NILL [facility] 03-17-2024 08:30-0400 Heart rate 64 /min Cornelius NILL [facility] 03-17-2024 08:30-0400 Mean blood pressure 94 mm[Hg] Cornelius NILL [facility] 03-17-2024 08:30-0400 Respiratory rate 20 /min Cornelius NILL [facility] 03-17-2024 08:30-0400 SaO2% (BldA) [Mass fraction] 99 % Cornelius NILL [facility] 03-17-2024 08:30-0400 Systolic blood pressure 114 mm[Hg] Cornelius NILL [facility] 03-17-2024 08:25-0400 Diastolic blood pressure 70 mm[Hg] Cornelius NILL [facility] 03-17-2024 08:25-0400 Heart rate 58 /min Cornelius NILL [facility] 03-17-2024 08:25-0400 Mean blood pressure 82 mm[Hg] Cornelius NILL [facility] 03-17-2024 08:25-0400 Respiratory rate 16 /min Cornelius NILL [facility] 03-17-2024 08:25-0400 SaO2% (BldA) [Mass fraction] 97 % Cornelius NILL [facility] 03-17-2024 08:25-0400 Systolic blood pressure 106 mm[Hg] Cornelius NILL [facility] 03-17-2024 08:17-0400 Body temperature 97.7 [degF] Cornelius NILL [facility] 03-17-2024 08:10-0400 Respiratory rate 12 /min Cornelius NILL [facility] 03-17-2024 07:58-0400 Respiratory rate 12 /min Cornelius NILL [facility] 03-17-2024 07:41-0400 Blood Pressure Location Cornelius NILL [facility] 03-17-2024 07:41-0400 Body temperature 97.88 [degF] Cornelius NILL [facility] 12-25-2023 14:11-0400 Blood Pressure Location Cornelius NILL [facility] 12-25-2023 14:11-0400 Diastolic blood pressure 76 mm[Hg] Cornelius STRONGL [facility] 12-25-2023 14:11-0400 Heart rate 72 /min Cornelius NILL [facility] 12-25-2023 14:11-0400 Respiratory rate 16 /min Cornelius NILL [facility] 12-25-2023 14:11-0400 Systolic blood pressure 116 mm[Hg] Cornelius NILL [facility] Encounters Encounter Date Encounter Type Care Provider Facility Start: 03-17-2024 End: 03-17-2024 ambulatory Cornelius STRONGL Facility:[facility] Start: 03-17-2024 End: 03-17-2024 Patient encounter procedure Cornelius R NILL [facility] Start: 12-25-2023 End: 12-25-2023 amb[facility] Start: 12-25-2023 End: 12-25-2023 Patient encounter procedure Cornelius R NILL [facility] Start: 12-13-2023 ambulatory Cornelius BAI Facility: [facility] Start: 12-20-2022 End: 12-20-[address] CAMACHO WATKINS . Facility: Start: 09-19-2022 End: 09-19-[address] VERONICA RAMIREZ . Facility:[facility] Start: 12-27-2021 End: 12-27-[address] CAMACHO WATKINS . Facility: Procedures Date Procedure Procedure Detail Performing Clinician Start: 03-17-2024 Colonoscopy Cornelius NI LL Arthroscopy of knee Cornelius STRONGL Cervical biopsy Cornelius NILL Cholecystectomy Cornelius BAI Vaginal hysterectomy Cornelius BAI Payers Date Payer Category Payer Unknown [id number] [id number] 1970 Unknown [id number] [id number] [id number] 1970 Unknown [id number] [id number] [id number] 1972 Unknown [id number] [id number] [id number] 1972 Unknown [id number] [id number] [id number] 1957 Unknown [id number] Social History Date Type Detail Facility Start: 12-25-2023 Tobacco smoking status Never s moked tobacco (finding) [facility] Tobacco smoking status Never [facility] Sex Assigned At Female [facility] Functional Status Date Assessment Result Facility 03-17-2024 Functional Status N/A [facility] 12-25-2023 Functional Status N/A [facility] Clinical Notes 12-25-2023 to 03-17-2024 Note Date & Type Note Facility 03-17-2024 Evaluation + Plan note Extrac jn from: Title:ANES Post-operative Note - General Author: Vincent Meeks Jr., DO Date:03/17/24 Plan Transfer/Discharge: Transfer/Discharge Discharge when meets criteria ( From PACU to Ambulatory Surgery Unit, and To home ). Extracted from: Title:ANES Pre-operative Note - Endo Author:Vincent Arteaga Jr., DO Date:03/17/24 Plan [place] [employer] (ASA) physical status classification: Class II. Anesthetic Preoperative Plan: Anesthesia General, and -TIVA. [facility] 08-05-2024 Hospital Discharge instructions Patient Education 03/17/2024 08:19:06 Colonoscopy, Care After Surgery Lázaro (CUSTOM) Colonoscopy Care After Surgery Please read the instructions outlined below and refer to this sheet in the next few weeks. These discharge instructions provide you with general information on caring for [facility] Your doctor may also give you specific instructions. While your treatment has been planned according to the most current medical practices available, unavoidable complications occasionally occur. If you have any problems or questions after discharge, please call your doctor. ACTIVITY You may resume your regular activity, but move at a slower pace for the next 24 hours. Take frequent rest periods for the next 24 hours. Walking will help get rid of the air and reduce the bloated feeling in your abdomen (belly). No driving for 24 hours (because of the anesthesia (medicine) used during the test). You may shower. Do not sign any important legal documents or operate any machinery for 24 hours (because of the anesthesia used during the test). NUTRITION Drink plenty of fluids. You may resume your normal diet as instructed by your doctor. Begin with a light meal and progress to your normal diet. Heavy or fried foods are harder to digestand may make you feel nauseated (sick to your stomach). Avoid alcoholic beverages for 24 hours or as instructed. MEDICATIONS You may resume your normal medications unless your doctor tells you otherwise. WHAT YOU CAN EXPECT TODAY Some feelings of bloating in the abdomen. Passage of more gas than usual. Spotting of blood in your stool or on the toilet paper. FOLLOW-UP Your doctor will discuss the results of your test with you. SEEK IMMEDIATE MEDICAL ATTENTION IF: There is more than a spotting of blood in your stool. There is abdominal distention (your abdomen is swollen). There is vomiting. You have a temperature over 101.5 F. There is abdominal pain or discomfort that is severe or gets worse throughout the day. 03/17/2024 08:19:04 Diverticulosis MAGR (CUSTOM) Diverticulosis Many people have small pouches in their colon called diverticulum. The diverticulum bulge outward through weak spots in the colon. You could have one or more of these pouches in the colon. The condition of having these pouches in the colon is called diverticulosis or diverticular disease. Diverticulosis is usually diagnosed by tests to evaluate something else. For example, you may have had a colonoscopy to screen for colon cancer when the diverticulosis was found. Most people with diverticulosis do not have any discomfort or problems. If symptoms develop, they may include mild cramps, bloating, and constipation. A complication of this condition is called diverticulitis. This is when the diverticulum become inflamed and infected. How to treat diverticulosis: Increasing the amount of fiber in the diet may reduce symptoms of diverticulosis and prevent complications such as diverticulitis (infected diverticuli). Fiber keeps stool soft and lowers pressure inside the colon so that bowel contents can move througheasily. You should eat 20 to 35 grams of fiber each day. The table below shows the amount of fiber in some foods that you can easily add to your diet. Adding fiber slowly may decrease the bloating and fullness sometimes felt with an immediate high fiber diet. The doctor may also recommend taking a fiber product such as Citrucel or Metamucil once a day. In the past people with diverticulosis were to avoid nuts, corn, and seeds. This has not been foundto be true. If you find that certain foods create cramping or bloating, avoid that food. Foods high in fiber include: Fresh fruits, fresh vegetables, legumes (beans), whole wheat bread, bran muffins or cereal, and nuts. See the table below for examples of high fiber foods. Remember, your goal is 20- 35 grams per day. Amount of fiber in different foods Food Serving Grams of fiber Fruits Apple (with skin) 1 medium apple 4.4 Banana 1 medium banana 3.1 Oranges 1 orange 3.1 Prunes 1 cup, pitted 12.4 Juices Apple, unsweetened, w/added ascorbic acid 1 cup 0.5 Grapefruit, white, canned, sweetened 1 cup 0.2 Grape, unsweetened, w/added ascorbic acid 1 cup 0.5 [place] 1 cup 0.7 Vegetables Cooked Green beans 1 cup 4.0 Carrots 1/2 cup sliced 2.3 Peas 1 cup 8.8 Potato (baked, with skin) 1 medium potato 3.8 Raw [place] (with peel) 1 cucumber 1.5 Lettuce 1 cup shredded 0.5 Tomato 1 medium tomato 1.5 Spinach 1 cup 0.7 Legumes Baked beans, canned, no salt added 1 cup 13.9 Kidney beans, canned 1 cup 13.6 Miller beans, canned 1 cup 11.6 Lentils, boiled 1 cup 15.6 Breads, pastas, flours Bran muffins 1 medium muffin 5.2 Oatmeal, cooked 1 cup 4.0 White bread 1 slice 0.6 Whole-wheat bread 1 slice 1.9 Pasta and rice, cooked Macaroni 1 cup 2.5 Rice, brown 1 cup 3.5 Rice, white 1 cup 0.6 Spaghetti (regular) 1 cup 2.5 Nuts Almonds 1/2 cup 8.7 Peanuts 1/2 cup 7.9 Chart from [facility] 2013. SEEK IMMEDIATE MEDICAL CARE IF: You develop abdominal (belly) pain. An oral temperature above _ 101 F__develops. Repeated vomiting occurs. Blood is being passed in stools (bright red or black tarry stools). You develop any bowel problems or changes which you have not had before. Extra Information: To learn how much fiber and other nutrients are in different foods, visit the [place] Department of Agriculture (USDA) National Nutrient Database at: http://www.nal.usda.gov/fnic/foodcomp/search/ Created using data from the USDA National Nutrient Database for Standard Reference. Available at http://www.Affinnova.usda.gov/fnic/foodcomp/search/. Information adapted from: [facility] Patient Information 2009 [employer]. [facility] 2012 http://www.viaCycle/contents/jxppwiqhmcdc-kdinjpz-gsvnqw-the-basics Follow Up Care 12/25/2023 14:43:31 With:Cornelius BAI Address: [address] [place] [address], [address] [place] [phone] Business (1) When: only if needed [facility] 08-05-2024 NoteColonoscopy Procedure Report Patient: CARINE STEVENS Age: 53 years Sex: Female : 1970 Associated Diagnoses: None Author: Cornelius BAI MD Pre-Procedure Procedure Date 03/17/2024 08:20:00 . Procedure Type: Colonoscopy. Procedure provider Performed by Cornelius BAI MD Referred by Veronica Ramirez MD. Current history and physical Documented on chart. Colorectal neoplasm risk assessment Average risk. Informed Consent After discussing the rationale, risks and benefits, and alternatives to this procedure, the patient provided signed consent for the procedure. Pre-procedure diagnosis: Age 50 years or over. ASA Classification: Class I. . Monitoring: See anesthesia record. . Procedure The procedure was performed in the hospital. See anesthesia record for sedation given during procedure. Rectal exam was performed and was normal. The patient was positioned starting in the left lateral decubitus position. Endoscope type used was an adult-size. The endoscope was lubricated then introduced through the anus. The scope was advanced to the cecum verified by photographing the appendiceal orifice, verified by photographing the ileocecal valve. No difficulties encountered during the procedure. The bowel preparation quality was good and was adequate (see polyps greater than or equal to 6 millimeters). The patient tolerated the procedure well. Findings Diverticulosis was identified in the sigmoid colon. The severity of the diverticulosis is mild. Images Procedure images: anal canal sigmoid diverticulum diverticulum ileocecal valve appendiceal orifice . Post-Procedure Complications: none. Estimated blood loss: none. Specimens: none. Devices/ implants: none left in place. Impression and Plan Diagnosis: Encounter for screening for malignant neoplasm of colon ([id number] Z12.11, Discharge, Medical). Course: Progressing as expected. Recommendations: Repeat colonoscopy:: In 10 years. Follow-up:: if problems/questions. Diet:: Regular diet. Medication resumption:: Continue current medications. Return to activities:: After 24 hours. Education and Follow-up: Counseled: [facility]Other Comment: Missing Attachment - attachment storage system not supported [id number] Can be viewed in source system Missing Attachment - attachment storage system not supported [id number] Can be viewed in source systemMissing Attachment - attachment storage system not supported [id number] Can be viewed in source systemMissing Attachment - attachment storage system not supported [id number] Can be viewed in source systemMissing Attachment - attachment storage system not supported [id number] Can be viewed in source [id number] NoteProgress Note-Physician Patient: CARINE STEVENS Age: 53 years Sex: Female : 1970 Associated Diagnoses: None Author: Vincent Meeks Jr., DO Postoperative Information Postoperative disposition: Postoperative disposition: Home. Optimetrix number: Optimetrix number [id number]. Anesthetic utilized: General. Physical Examination VS/Measurements Pain Assessment: Controlled. General: Awake, Alert, Appropriate. Respiratory: Adequate air exchange, Non-labored. Cardiovascular: Stable, Normal peripheral perfusion. Neurological: Neurologic exam at baseline. No changes.. Assessment Anesthetic outcome No anesthetic complications noted. No nausea/vomiting. Review / Management Condition: Stable. Plan Transfer/Discharge: Transfer/Discharge Discharge when meets criteria ( From PACU to Ambulatory Surgery Unit, and To home ).[facility]:Result Comment: Electronically Signed By: Vincent Meeks Jr., DO\.br\Date and Time Signed: 03/17/24 08:47 [id number] NotePatient Education - Text Colonoscopy Care After Surgery Please read the instructions outlined below and refer to this sheet in the next few weeks. These discharge instructions provide you with general information on caring for yourself after you leave thespital. Your doctor may also give you specific instructions. While your treatment has been planned according to the most current medical practices available, unavoidable complications occasionally occur. If you have any problems or questions after discharge, please call your doctor. ACTIVITY You may resume your regular activity, but move at a slower pace for the next 24 hours. Take frequent rest periods for the next 24 hours. Walking will help get rid of the air and reduce the bloated feeling in your abdomen (belly). No driving for 24 hours (because of the anesthesia (medicine) used during the test). You may shower. Do not sign any important legal documents or operate any machinery for 24 hours (because of the anesthesia used during the test). NUTRITION Drink plenty of fluids. You may resume your normal diet as instructed by your doctor. Begin with a light meal and progress to your normal diet. Heavy or fried foods are harder to digestand may make you feel nauseated (sick to your stomach). Avoid alcoholic beverages for 24 hours or as instructed. MEDICATIONS You may resume your normal medications unless your doctor tells you otherwise. WHAT YOU CAN EXPECT TODAY Some feelings of bloating in the abdomen. Passage of more gas than usual. Spotting of blood in your stool or on the toilet paper. FOLLOW-UP Your doctor will discuss the results of your test with you. SEEK IMMEDIATE MEDICAL ATTENTION IF: There is more than a spotting of blood in your stool. There is abdominal distention (your abdomen is swollen). There is vomiting. You have a temperature over 101.5 F. There is abdominal pain or discomfort that is severe or gets worse throughout the day. Diverticulosis Many people have small pouches in their colon called diverticulum. The diverticulum bulge outward through weak spots in the colon. You could have one or more of these pouches in the colon. The condition of having these pouches in the colon is called diverticulosis or diverticular disease. Diverticulosis is usually diagnosed by tests to evaluate something else. For example, you may have had a colonoscopy to screen for colon cancer when the diverticulosis was found. Most people with diverticulosis do not have any discomfort or problems. If symptoms develop, they may include mild cramps, bloating, and constipation. A complication of this condition is called diverticulitis. This is when the diverticulum become inflamed and infected. How to treat diverticulosis: Increasing the amount of fiber in the diet may reduce symptoms of diverticulosis and prevent complications such as diverticulitis (infected diverticuli). Fiber keeps stool soft and lowers pressure inside the colon so that bowel contents can move througheasily. You should eat 20 to 35 grams of fiber each day. The table below shows the amount of fiber in some foods that you can easily add to your diet. Adding fiber slowly may decrease the bloating and fullness sometimes felt with an immediate high fiber diet. The doctor may also recommend taking a fiber product such as Citrucel or Metamucil once a day. In the past people with diverticulosis were to avoid nuts, corn, and seeds. This has not been foundto be true. If you find that certain foods create cramping or bloating, avoid that food. Foods high in fiber include: Fresh fruits, fresh vegetables, legumes (beans), whole wheat bread, bran muffins or cereal, and nuts. See the table below for examples of high fiber foods. Remember, your goal is 20- 35 grams per day. Amount of fiber in different foods Food Serving Grams of fiber Fruits Apple (with skin) 1 medium apple 4.4 Banana 1 medium banana 3.1 Oranges 1 orange 3.1 Prunes 1 cup, pitted 12.4 Juices Apple, unsweetened, w/added ascorbic acid 1 cup 0.5 Grapefruit, white, canned, sweetened 1 cup 0.2 Grape, unsweetened, w/added ascorbic acid 1 cup 0.5 [place] 1 cup 0.7 Vegetables Cooked Green beans 1 cup 4.0 Carrots 1/2 cup sliced 2.3 Peas 1 cup 8.8 Potato (baked, with skin) 1 medium potato 3.8 Raw [place] (with peel) 1 cucumber 1.5 Lettuce 1 cup shredded 0.5 Tomato 1 medium tomato 1.5 Spinach 1 cup 0.7 Legumes Baked beans, canned, no salt added 1 cup 13.9 Kidney beans, canned 1 cup 13.6 Imller beans, canned 1 cup 11.6 Lentils, boiled 1 cup 15.6 Breads, pastas, flours Bran muffins 1 medium muffin 5.2 Oatmeal, cooked 1 cup 4.0 White bread 1 slice 0.6 Whole-wheat bread 1 slice 1.9 Pasta and rice, cooked Macaroni 1 cup 2.5 Rice, brown 1 cup 3.5 Rice, white 1 cup 0.6 Spaghetti (regular) 1 cup 2.5 Nuts Almonds 1/2 cup 8.7 Peanuts 1/2 cup 7.9 [facility] (more content not included)...[facility] 03-17-2024 NoteProgress Note-Physician Patient: CARINE STEVENS Age: 53 years Sex: Female : 1970 Associated Diagnoses: None Author: Vincent Meeks Jr., DO Preoperative Information Anesthesia history: Patient history: No prior anesthetic problems. Informed consent: Signed by patient. Re-evaluation prior to induction: Initial evaluation reviewed: No significant change. Review of Systems Respiratory: Negative except as documented in history of present illness. Cardiovascular: Negative except as documented in history of present illness. Health Status Allergies: Allergic Reactions (Selected) No Known Allergies No Known Medication Allergies, Allergies (2) Active Severity Reaction No Known Allergies None Documented No Known Medication Allergies None Documented Current medications: (Selected) Inpatient Medications Ordered Lactated Ringers IV Candy 1000 mL 1,000 mL: 1,000 mL, IV, 100 mL/hr, Routine, Start date 03/17/24 7:00:00 EDT, 10 hour(s), Total volume (mL): 1,000 Sodium Chloride 0.9% IV Candy 1000 mL 1,000 mL: 1,000 mL, IV, 20 mL/hr, Routine, Start date 03/17/24 7:00:00 EDT, 50 hour(s), Total volume (mL): 1,000 Documented Medications Documented estradiol 1 mg Tab: 1 mg = 1 tab(s), Oral, Daily, 90 tab(s), 0 Refill(s), Refills(s) 0, Home Medications (1) Active estradiol 1 mg Tab 1 mg = 1 tab(s), Oral, Daily , Medications (2) Active Scheduled: (0) Continuous: (2) Lactated Ringers 1,000 mL 1,000 mL, IV, 100 mL/hr Sodium Chloride 0.9% 1,000 mL 1,000 mL, IV, 20 mL/hr PRN: (0) Problem list: All Problems BMI 26.0-26.9,adult / SNOMED CT 2263110288 / Confirmed Over weight / SNOMED CT 748673257 / Confirmed Pure hypercholesterolemia / SNOMED CT 165030039 / Confirmed Screening for malignant neoplasm of colon / SNOMED CT 122377766 / Confirmed Canceled: Overweight / SNOMED CT 957376921 Histories Past Medical History: No active or resolved past medical history items have been selected or recorded. Procedure history: Cholecystectomy (12489203). Arthroscopy of knee (296859807). Vaginal hysterectomy (752460102). Cervical biopsy (68212838). Social History Social & Psychosocial Habits Alcohol 12/25/2023 Use: Current Type: Wine Frequency: 1-2 times per month Substance Abuse 12/25/2023 Risk Assessment: Denies Substance Abuse Tobacco 12/25/2023 Tobacco Use: Never (less than 100 in l Smokeless tobacco use: Never . Physical Examination VS/Measurements Airway: Mallampati classification: II (soft palate, fauces, uvula visible). Respiratory: Lungs are clear to auscultation, Respirations are non-labored. Cardiovascular: Regular rhythm. Plan [place] [employer] Anesthesiologists (ASA) physical status classification: Class II. Anesthetic Preoperative Plan: Anesthesia General, and -TIVA.[facility] above:Result Comment: Electronically Signed By: Vincent Meeks Jr., DO\Date and Time Signed: 03/17/24 07:02 [id number] NoteChief Complaint consultation for colonoscopy HPI Staff 53 year old female presents on consultation from Dr. Ramirez for screening colonoscopy. Denies abdominal or rectal pain. No rectal bleeding or change in bowel habits. Denies nausea or vomiting. No unexplained weight loss. Never had colonoscopy in the past. No known family history of colon cancer. History of Present Illness 53 yo female referred for colorectal screening; denies change in bms or blood in stools; no abdominal complaints; denies asa or NSAID use, no SBE prophylaxis; abdominal operations significant for LS cholecystectomy and vaginal hysterectomy; no previous colonoscopy; no fmhx of GI malignancy or IBD; no tobacco use. Review of Systems PHQ Score Initial Depression Screen Score: 0 SCORE ROS - Provider Constitutional: no fever, no sweats, no weight loss. Eyes: no glasses, no blurred vision, no visual loss. ENMT: no dentures, no hoarseness, no swallowing difficulties, no hearing loss, no ear infection(s),no nose bleeds. Cardiovascular: normal blood pressure, no chest pain, regular heartbeat, no heart murmur. Respiratory: no shortness of breath, no cough, no asthma, no wheezing. Gastrointestinal: no nausea, no vomiting, no diarrhea, no constipation, no blood in stool, no change in bowel habits, no abdominal pain, no hepatitis. Genitourinary: no kidney stones, no urine infection, no dysuria. Musculoskeletal: no pain, no weakness. Skin: no changing moles, no rash, no skin lumps. Neurologic: no seizures, no epilepsy, no headache. Psychiatric: no emotional or psychiatric problem. Heme/Lymph: no bleeding problems, no anemia, no blood clots, no transfusions. Allergy/Immunologic: no swollen lymph nodes/glands, no IV drug abuse. Other: Additional ROS info: Except as noted in the above Review of Systems and in the History of Present Illness, all other systems have been reviewed and are negative or noncontributory. Physical Exam Vitals & Measurements HR: 72(Peripheral) RR: 16 BP: 116/76 HT: 63 in HT: 160 cm WT: 68.7 kg WT: 151.14 lb BMI: 26.84 HEENT: normal conjunctiva, sclera clear, no scleral icterus, EOM intact, PERRLA, oral mucosa moist without lesions. Neck: trachea midline, no mass, symmetric, no thyromegaly or nodules, no adenopathy Respiratory: lungs CTA, respirations non labored. Cardiovascular: regular rate and rhythm, no murmur, no pedal edema or varicosities. Gastrointestinal: soft, non distended, no tenderness, no masses, no palpable hernias, diastasis recti no, no hepatosplenomegaly; normal bs Lymphatic: no cervical adenopathy, no supraclavicular adenopathy. Musculoskeletal: normal gait, digits and nails without infection, nodes, cyanosis, clubbing. Skin: no rashes, no lesions, no ulcers, no subcutaneous nodules, induration. Psychiatric/Neuro: oriented to time, place, person, judgement normal, affect appropriate for age, insight intact, no focal deficits. Tests: review of old records completed , Discussed surgical options, risks, and possible complications with patient. Assessment/Plan 1. Screening for malignant neoplasm of colon (Z12.11: Encounter for screening for malignant neoplasm of colon) plan colonoscopy under anesthesia, informed consent obtained. Follow-up No qualifying data available Problem List/Past Medical History Ongoing BMI 26.0-26.9,adult Over weight Pure hypercholesterolemia Screening for malignant neoplasm of colon Historical No qualifying data Procedure/Surgical History Arthroscopy of knee, Cervical biopsy, Cholecystectomy, Vaginal hysterectomy. Medications estradiol 1 mg Tab, 1 mg= 1 tab(s), Oral, Daily Allergies No Known Allergies No Known Medication Allergies Social History Alcohol Current, Wine, 1-2 times per month, 12/25/2023 Substance Abuse - Denies Substance Abuse, 12/25/2023 Tobacco Never (less than 100 in lifetime) Tobacco Use:. Never Smokeless Tobacco Use:., 12/25/2023 Family History Heart disease: Mother and Father. Hypercholesterolemia: Mother, Father and Sister. Primary malignant neoplasm of female breast: Mother. Uterine cancer: Mother.[facility]Comment on above:Result Comment: Electronically Signed By: BHUMIKA ROCKWELL, Cornelius Tsang\Date and Time Signed: 12/25/23 14:57 EDTEvaluation + Plan note Future Appointments Appointment Date:03/17/2024 08:00:00 AM Scheduled Provider: Location:[facility] Appointment Type:Surgery FT [facility] Hospital course Narrative No data available for this section [facility] Hospital Discharge instructions No data available for this section [facility] Progress note No data available for this section [facility] Summary Purpose Family History No Family History Records Found No data available for this section No data available for this section No Family History Records Found Advance Directives No Advanced Directives Records FoundNo Advanced Directives Records Found Additional Source Comments INFORMATION SOURCE (unrecogn ized section and content) DATE CREATED AUTHOR 12/24/2022 [facility] DATE CREATED AUTHOR AUTHOR'S ORGANIZ ATION 03/22/2024 [facility] Patient Care team informatio n (unrecognized section and content) Personnel Name: Veronica Ramirez MD Address: Address: [address] [place] [address] Personnel Name: Veronica Ramirez MD Address: Address: [address] [place] [address] FOR RECORDS PERTAINING TO PATIENTS WHO ARE OR HAVE BEEN ENROLLED IN A CHEMICAL DEPENDENCY/SUBSTANCEABUSE PROGRAM, SOME INFORMATION MAY BE OMITTED. This clinical summary was aggregated from multiple sources. Caution should be exercised in using it in the provision of clinical care. This summary normalizes information from multiple sources, and as a consequence, information in this document may materially change the coding, format and clinical context of patient data. In addition, data may be omitted in some cases. CLINICAL DECISIONS SHOULD BE BASED ON THE PRIMARY CLINICAL RECORDS. [facility]. provides no warranty or guarantee of the accuracy or completeness of information in this document.
== END 2025-01-22 15:43 | disposition home or self-care (01) ==
LOC: CT 15:47
PROVIDERS: PCP Family Medicine; Visit Provider Family Medicine
DX: S06.0X9A Concussion with loss of consciousness of unspecified duration, initial encounter (principal)
CPT/HCPCS: 70450

== ENCOUNTER 2025-01-28 09:11 | Outpatient (OUT) | payer BC, SELFPAY ==
--- OUTSIDE RECORDS SUMMARY | 2025-01-22 10:00 | XMS_ITS ---
Author Organization The [facility] in [place] Address [address] [place] [address] Care Team Providers Care Bioinformatician Name Role Phone DerekmengMichael Primary Care Provider Allergies No Known Allergies REASON FOR VISIT hit head on sunday on bathroom sink above the left baptism- tingling in face and arms since then, [...] Risk Notes Problem Concussion injury of brain (097989914) Concussion (S06.0X9A) Active confirmed Vital Signs Blood pressure systolic 152 mm Hg 01/23/20 25 Blood pressure diastolic 96 mm Hg 025 Height 63 in 01/22/2025 Weight 157.2 lbs 01/22/2025 BMI 27.84 kg/m2 01/22/2025 Encounters Encounter Location Date Provider Diagnosis [facility] [address] [place] [address] 01/22/2025 Michael Ramirez Concussion S06.0X9A Assessments Encounter Date Diagnosis (ICD Code) Assessment Notes Treatment Notes Treatment Clinical Notes Section Notes 01/22/2025 Concussion (ICD-10 - S06.0X9A) Plan Of Treatment Pending Test Test Name Order Date CT Brain w/o Contrast 01/22/2025 Progress Notes * Laron WALLOB:[birth year] (54 yo F)Acc No.[id number]:01/22/2025 Progress Note Patient: Jessica CHILDRESS Provider: Giovani Ramirez ([facility])MD :1970 A ge:54 Y S ex:Female Date:01/22/2025 Address:[address] [place], [place] [id number] Check In:02:48 PM ESTCheck O ut:03:27 PM EST Subjective: * Chief Complaints: * H it head on sunday on bathroom sink above the left baptism- tingling in face and arms since thenHas also has neck pain on the right side and moves down to the shoulder area * HPI: D epression Screening: PHQ-2 (2015 [...] enies. S wollen joints d enies. 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 Modified On:04/24/2023U Status:confirmed H81.399 Peripheral vertigo Modified On:04/24/2023U Status:confirmed K11.5 Parotid sialolithias is Modified On:04/24/2023U Status:confirmed Z00.00 Well adult Modified On:04/30/2023U Status:confirmed E78.00 Pure hypercholestero lemia, unspecified Modified On:05/08/2023U Status:confirmed B02.9 Shingles Modified On:07/16/2023U Status:confirmed S06.0X9A Concussion Modified On:01/22/2025U Status:confirmed * Medical History: * Surgical History: C HOLECYSTECTOMY Hysterectomy- partial Knee scopes- right colonoscopy 03-17-24 * Hospitalization/Major Diagno stic Procedure: D enies Past Hospitalization * Family History: F ather: alive, Hypercholesterolemia, diagnosed with Unspecified heart disease. M other: alive, Uterine and breast cancer, Hypercholesterolemia, diagnosed with Unspecified heart disease. Sister(s): alive, Vertigo, scoliosis. S on(s): alive. D aughter(s): alive. 4 sister(s) . 2 son(s) , 1 daughter(s) . . * Social History: T obacco Use: T obacco Use/Smoking P atient is a n onsmoker * Medications: T akingEstradiol 1 mg Tablet TAKE 1 TABLET DAILY Medication List reviewed and reconciled with the patientTaking Estradiol 1 mg Tablet TAKE 1 TABLET DAILY Medication List reviewed and reconciled with the patient * Allergies: N .K.D.A.no[Allergies Verified] Objective: * Vitals: W t:157.2lbs, Ht: 63 [...] - S06.0X9A (Primary) Plan: * Treatment: * Procedure Codes: * Preventive Medicine: Screenings/Counseling: B SD ACTION PLAN Above Normal BMI Follow-up D ietary management education, guidance, and counseling * * Sign off status: Completed Visit Status: C HK (Check Out) true * Provider: Giovani Ramirez ([facility])MD Date: 0 01/22/2025 Generated for Printi ng/Fastasg/eTransmitting on: 0 01/28/2025 09:17 AM EDT History and Physical Notes * HPI [...]
--- OUTSIDE RECORDS SUMMARY | 2025-01-28 04:30 | XMS_ITS ---
Author Organization [facility] [place] Address [address] [place] [address] Care Team Providers Care Knockup Worker Name Role Phone Michael Ramirez Primary Care Provider Allergies No Known Allergies REASON FOR VISIT f/u tingling in head and arms- still ongoing from when was here last time- screens aggravates the nausea and headaches, in 1997 she broke her neck- C4-C5, Sciatic nerve in the right side bothering her Medications Medication SIG (Take, Route, Fr equency, [...] Problem Status W/U Status Risk Notes Problem Blurry vision (875248259) Blurry vision (H53.8) Active confirmed Problem Cervical radiculopathy (M54.12) Active confirmed Vital Signs Blood pressure systolic 118 mm Hg 01/29/20 25 Blood pressure diastolic 86 mm Hg 025 Height 63 in 01/28/2025 Weight 155.4 lbs 01/28/2025 BMI 27.52 kg/m2 01/28/2025 Encounters Encounter Location Date Provider Diagnosis [facility] [address] [place] [address] 01/28/2025 Michael Ramirez Blurry vision H53.8 and Cervical radiculopathy M54.12 Assessments Encounter Date Diagnosis (ICD Code) Assessment Notes Treatment Notes Treatment Clinical Notes Section Notes 01/28/2025 Blurry vision (ICD-10 - H53.8) Persistent symptoims - ct neg - needs MRI - wiht Altere mental, and vison changes need to rule out MS - needs MRI withand without contrast 01/28/2025 Cervical radiculopathy (ICD-10 - M54.12) 01/28/2025 Other Take NSAIDs as needed for pain. Discussed avoiding headache triggers and improiving diet and sleep habits to prevent headaches. Plan Of Treatment Treatment Notes Assessment Notes Blurry vision Persistent symptoims - ct neg - needs MRI - wiht Altere mental, and vison changes need to rule out MS - needs MRI withand without contrast Other Take NSAIDs as neede d for pain. Discussed avoiding headache triggers and improiving diet and sleep habits to prevent headaches. Pending Test Test Name Order Date MRI BRAIN WO W CON 01/28/2025 MRI CSPINE WO CON 01/28/2025 XR cervical spine 2-3V 01/28/2025 Medications Administered Medication Instructions Date of Administration Dosage Notes Ketorolac Tromethamine 01/28/2025 60 mg Orphenadrine Citrate 01/28/2025 60 mg Triamcinolone 40 mg/ml 01/28/2025 120 mg Progress Notes * Laron WALLOB:[birth year] (54 yo F)Acc No.[id number]:01/28/2025 UNLOCKED PROGRESS NOTE Progress Note Patient: Jessica CHILDRESS Provider: Giovani Ramirez ([facility])MD :1970 A ge:54 Y S ex:Female Date:01/28/2025 Address:[address] [place], [place] [id number] Check In:08:19 AM ESTCheck O ut:09:00 AM EST Subjective: * Chief Complaints: * 1 . F/u tingling in head and arms- still ongoing from when was here last time- screens aggravates the nausea and headaches. 2. in 1997 she broke her neck- C4-C5. 3. Sciatic nerve in the right side bothering her. * HPI: G eneral: Palliative H x c-spinge fracter - now since last visit - started noticing decreased griop strength and tingling into hands s til also wtih foggy feeling - trouble concentreting - dizzy - nausea - getting intermittand blurry vison t his is after head trauama n eeds MRI hea and neck - possiboe MS flare - vs traumatic c-spine injury but that doens cause the blurry vision and vertigo. H eadache: The patient complains of h eadache. Patient describes headache as - . Patient believes headaches are related to injury n o. Suspected triggers - . Symptoms have been present for 1 -2 days. The symptoms are m oderate. Symptomatic treatment has included N SAIDs. Associated symptoms include n debora pain, diziness, fatigue.? * ROS: G eneral/Constitutional: Lightheadedness d enies. C hange in appetite d enies. W eight Change d enies. C ardiovascular: Irregular Heartbeat d enies. S welling in hands/feet?denies. R espiratory: Shortness of breath d enies. S hortness of breath at rest d enies. W heezing d enies. N eurologic: Comments S ee HPI for details. * Medical History: K NEE DERANGEMENT, LEIOMYOMA, [...] Allergies: N .K.D.A. Objective: * Vitals: W t:155.4lbs, Ht: 63 in, BP:118/86mm Hg, BMI:27.52Index, Ht-cm: 160.02 cm, Wt-k.49 kg. * Examination: G eneral Examination: GENERAL APPEARANCE: in no acute distress, well developed, well nourished. LUNGS: clear to auscultation bilaterally. CARDIO: S1, S2 normal, no murmurs, rubs, gallops. EXTREMITIES: no clubbing, cyanosis, or edema. NEUROLOGIC: alert, oriented to time, place, & person.? Assessment: * Assessment: 1. B lurry vision - H53.8 (Primary) 2 . C ervical radiculopathy - M54.12? Plan: * Treatment: 2. O thers Notes:Take NSAIDs as needed for pain. Discussed avoiding headache triggers and improiving diet and sleep habits to prevent headaches. * Therapeutic Injections: Triamcinolone 40 mg/ml : 120 mg (Route: Intramuscular) given by Aileen Proctor , on right gluteus (Cervical radiculopathy) Orphenadrine Citrate : 60 mg (Route: Intramuscular) given by Aileen Proctor , on left gluteus (Cervical radiculopathy) Ketorolac Tromethamine : 60 mg (Route: Intramuscular) given by Aileen Proctor , SA on left gluteus (Cervical radiculopathy) * Procedure Codes: J 3301 TMC ACET,PER 10MG., J2360 NORFLEX,UP TO 60MG., J1885 TORADOL, PER 15 MG, 48863 THERAP.INJ. OF MED. INTRAMUSCULAR OR SUBCUTANEOUS * * Electronic signature of Michael Ramirez MD, [id number] on 01/28/2025 at 09:16 AM EDT Sign off status: Pending Visit Status: C HK (Check Out) * Provider: Giovani Ramirez ([facility])MD Date: 01/28/2025 Generated for Fletcher renae/Kathie/Sandieitting on: 01/28/2025 09:16 AM EDT History and Physical Notes * HPI (History of Present Illness) Category Sub-Category Detail Notes Category Not es Headache The patient complains of headache Patient describes headache as - Patient believes headaches are related t o injury no Suspected triggers - Symptoms have been present for 1-2 days The symptoms are moderate Symptomatic treatment has included NSAID s Associated symptoms include neck pain, d iziness, fatigue General Palliative Hx c-spinge frac ter - now since last visit - started noticing decreased griop strength and tingling into hands stil also wtih foggy feeling - trouble concentreting - dizzy - nausea - getting intermittand blurry vison this is after head trauama needs MRI hea and neck - possiboe MS flare - vs traumatic c-spine injury but that doens cause the blurry vision and vertigo Examination Category Sub-Category Detail Notes Category Not es General Examination GENERAL APPEARANCE: in no ac [place] distress, well developed, well nourished CARDIO: S1, S2 normal, no mu rmurs, rubs, gallops LUNGS: clear to auscultatio n bilaterally NEUROLOGIC: alert, oriented to t [place], place, & person EXTREMITIES: no clubbing, cyanosi s, or edema
--- OUTSIDE RECORDS SUMMARY | 2025-01-28 09:15 | XMS_ITS | Clinical Summary ---
Author Organization [facility] Address [address] [place] [address] Care Team Providers Care Advertising Specialist Name Role Phone Unavailable Primary Care Provider [...] Plan of Treatment Not on file Insurance [facility]
--- OUTSIDE RECORDS SUMMARY | 2025-01-28 09:15 | XMS_ITS | Clinical Summary ---
Author Organization [facility] Address [id number] [address] [place] [address] Care Team Providers Care Manager Asset Name Role Phone Unavailable Primary Care Provider [...]
--- NOTE | 2025-01-28 09:16 | XR_ITS ---
The [address] [address] Patient Name: CARINE STEVENS MRN: [id number] date: 1970 Sex: F Assigned Patient Location: [facility] Current Patient Location: [facility] Accession/Order Number: [id number] Exam Date: 01/28/2025 09:51 Report Date: 01/28/2025 09:54 At the request of: VERONICA FLORES MD Procedure: XR cervical spine 2-3V CERVICAL SPINE - 3 views: CLINICAL HISTORY: Blurry vision since patient hit head on bathroom sink. Numbness and tingling at the arms. COMPARISON: None AP, lateral and odontoid views were obtained. There is reversal of the normal cervical curvature. There is no evidence of compression fracture. There is minor anterolisthesis of C4 on C5. There is disc space narrowing at C5-6 and C6-7 where there is minor endplate sclerosis as well as endplate spurring. There is also additional mild spurring at the inferior aspect of C4. The atlantoaxial relationship is maintained. There is no prevertebral soft tissue swelling. XR/XR cervical spine 2-3V IMPRESSION: LOSS OF THE NORMAL CERVICAL CURVATURE. LOWER CERVICAL DEGENERATIVE CHANGES. Impression dictated by: Kori Gould M.D. 01/28/2025 9:54 AM Dictation Location: [place] [address] Electronically authenticated by: [id number] Y Date: 01/28/2025 09:54
--- OUTSIDE RECORDS SUMMARY | 2025-01-28 09:17 | XMS_ITS | CCD ---
Author Organization [facility] Care Team Providers Care Sumo Wrestler Name Role Phone ASHLEY ., DR MARTIN [...] Medication Allergies] Propensity to adverse reactions (disorder) [facility] Repository Medications Current Medications Medication Drug [...] Patient due for screening colonoscopy 03/17/2034. Normal [facility] Discharge Instructionson Discharge Instructions Discharge Instructions [...] if needed Where: [address], [address] [facility] [address] [place] [address]- Business (1) Medications What How Much When [...] fiber in (more content not included)... Normal [facility] Comment on above: Result Comment: Elec tronically Signed By: Ifeanyi MARTINEZ, Nurys Matute\.br\Date and Time Signed: 03/17/24 08:19 EDT Inpatient Patient Summaryon 03-17-2024 Inpatient Patient Summary Inpatient Patient Summary [address] [address] [facility] Clinical Discharge Instructions PERSON INFORMATION Name: CARINE STEVENS [facility]#:[id number] PHYSICIANS Admitting Physician: Cornelius BAI MD Attending Physician: Cornelius BAI MD PCP: Ashley ROCKWELL, Veronica Discharge Diagnosis: Encounter for screening for malignant neoplasm of colon Comment: PATIENT EDUCATION INFORMATION Instructions: Medication Leaflets: Follow up: With: Address: When: Cornelius BAI [address] [place] [address], [address], [address] [address] Business (1) , only if needed MEDICATION LIST Medications to Continue with No Changes Other Medications estradiol (estradiol 1 mg Tab) 1 Tablets By Mouth every day. 90 tab(s), 0 Refill(s)., Responsible Provider: VERONICA RAMIREZ Comment: Pancho [facility] Main OR Intraoperative Recor don 03-17-2024 Main OR Intraoperative Record Main OR Intraoperative Record IntraOp Document Type FT Summary Primary Physician: Cornelius BAI MD Finalized Date/Time: 03/17/24 11:55:43 Pt. Name: CARINE STEVENS/Sex: 1970 Female Med Rec #: [id number] Physician: Cornelius BAI MD Financial #: [id number] Pt. Type: O Room/Bed: / Admit/Disch: 03/17/24 [...] Aviles Role Performed Anesthesiologist Surgeon - Primary Money Room Supervisor - Primary Tube Pusher Time In 03/17/24 07:58:00 03/17/24 07:58:00 03/17/24 [...] Yes By (more content not included)... Normal [facility] Main OR PACU I Recordon Main OR PACU I Record Main OR PACU I Record PACU Phase I Document Type FT Summary Primary Physician: Cornelius BAI MD Finalized Date/Time: 03/17/24 09:19:03 Pt. Name: CARINE STEVENS/Sex: 1970 Female Med Rec #: [id number] Physician: Cornelius BAI MD Financial #: [id number] Pt. Type: O Room/Bed: / Admit/Disch: 03/17/24 [...] By: Nurys Suggs RN 03/17/24 09:19 Normal [facility] Main OR Preoperative Recordo n 03-17-2024 Main OR Preoperative Record Main OR Preoperative Record Holding Area Document Type FT Summary Primary Physician: Cornelius BAI MD Finalized Date/Time: 03/17/24 07:41:05 Pt. Name: CRAINE STEVENS/Sex: 1970 Female Med Rec #: [id number] Physician: Cornelius BAI MD Financial #: [id number] Pt. Type: O Room/Bed: / Admit/Disch: 03/17/24 [...] By: Adilson Ramos RN 03/17/24 07:41 Normal [facility] Outpatient Surgery Discharge Instructionon 03-17-2024 Outpatient Surgery Discharge Instruction Outpatient Surgery Discharge Instruction [address] [address] Patient Discharge Instructions PERSON INFORMATION [...] Follow up: With: Address: When: Cornelius BAI [address] [place] [address], [address], [place] [phone] [facility] (1) , only if needed Pharmacy Information: You may receive a survey from [employer] asking you to rate your care experience. Your feedback is important and will help us understand what we do well and how we can improve the quality of care we provide to you, your loved ones and our community. It?s an honor to serve you. Thank you for choosing [facility] HERE ARE THE MEDICATION CHANGES THAT OCCURRED DURING YOUR HOSPITAL STAY Medications to Continue with No Changes Other Medications estradiol (estradiol 1 mg Tab) 1 Tablets By Mouth every day. 90 tab(s), 0 Refill(s)., Responsible Provider: VERONICA RAMIREZ PATIENT EDUCATION INFORMATION Instructions: Medication Leaflets: [facility] Consent for Procedure/Surger yon 12-26-2023 Consent for Procedure/Surgery [id number]#[id number] [facility] Formson 12-26-2023 Forms [id number]#1.00TIFF [facility] Ambulatory Visit Summaryon 0 12-25-2023 Ambulatory [...] Follow-Up Appointments Sunday 8:00 AM EDT Where: [facility] Medications What How Much When [...] for choosing us for your care. Normal [facility] Physician Referralon 024 Physician Referral [id number]#[id number] Normal [facility] CARDIAC ASHLEY ADMITon 023 CK [Catalytic activity/Vol] 99 U/L Normal 26-192 [facility] Comment on above: Performed By: #### B DANA CANNON #### [facility] [address] [place] [address] Dr. Alexia Huber CK.MB [Mass/Vol] 0.84 ng/mL Normal <=3.60 [facility] Comment on above: Performed By: #### B DANA CANNON #### [facility] [address] [place] [address] Dr. Alexia Huber HSTROP 4.6 pg/mL Normal 4.0-51.3 [facility] Comment on above: Result Comment: CUT- OFF POINTS HAVE BEEN ESTABLISHED BASED ON THE FOURTH UNIVERSAL DEFINITIONS OF MYOCARDIAL INFARCTION. THE UPPER REFERENCE LIMIT (URL) OF TROPONIN, DEFINED THE 99TH PERCENTILE OF cTnI DISTRIBUTION IN A REFERENCE POPULATION, HAS BEEN CONFIRMED THE DECISION THRESHOLD FOR PA DIAGNOSIS. Performed By: #### B HOLLY CANNONDM #### [facility] [address] [place] [address] Dr. Alexia Huber AKIL 39 ng/mL Normal 9-82 [facility] Comment on above: Performed By: #### B HOLLY CANNONDM #### [facility] [address] [place] [address] Dr. Alexia Huber CBC AUTO DIFFon 09-19-2022 BASO # 0.1 103/ul Normal 0.0-0.1 [facility] Comment on above: Performed By: #### C BC #### [facility] [address] [place] [address] Dr. Alexia Huber Basophils/100 WBC (Bld) 0.5 % Normal 0.2-2.0 [facility] Comment on above: Performed By: #### C BC #### [facility] [address] [place] [address] Dr. Alexia Huber EO # 0.2 103/ul Normal 0.0-0.7 [facility] Comment on above: Performed By: #### C BC #### [facility] [address] [place] [address] Dr. Alexia Huber Eosinophils/100 WBC (Bld) 1.4 % Normal 0.9-7.0 [facility] Comment on above: Performed By: #### C BC #### [facility] [address] [place] [address] Dr. Alexia Huber Erythrocyte distribution width (RBC) [Ratio] 12.7 % Normal 11.0-15.0 [facility] Comment on above: Performed By: #### C BC #### [facility] [address] [place] [address] Dr. Alexia Huber Hematocrit (Bld) [Volume fraction] 39.5 % Normal 36.0-48.0 [facility] Comment on above: Performed By: #### C BC #### [facility] [address] [place] [address] Dr. Alexia Huber Hemoglobin (Bld) [Mass/Vol] 12.7 g/dL Normal 12.0-16.0 [facility] Comment on above: Performed By: #### C BC #### [facility] [address] [place] [address] Dr. Alexia Huber IG # 0.03 10e3/ul Normal 0.00-0.03 [facility] Comment on above: Performed By: #### C BC #### [facility] [address] [place] [address] Dr. Alexia Huber IG % 0.2 % Normal 0.0-0.5 [facility] Comment on above: Performed By: #### C BC #### [facility] [address] [place] [address] Dr. lAexia Huber LYMPH # 3.0 103/ul Normal 1.2-3.8 [facility] Comment on above: Performed By: #### C BC #### [facility] [address] [place] [address] [address] Alexia Huber Lymphocytes/100 WBC (Bld) 22.4 % Normal 20.5-60.0 [facility] Comment on above: Performed By: #### C BC #### [facility] [address] [place] [address] [address] Alexia Huber MANUAL DIFF REQ NO Normal [facility] Comment on above: Performed By: #### C BC #### [facility] [address] [place] [address] [address] Alexia Huber MCH (RBC) [Entitic mass] 32.2 pg Normal 26.7-34.0 [facility] Comment on above: Performed By: #### C BC #### [facility] [address] [place] [address] Dr. Alexia Huber MCHC (RBC) [Mass/Vol] 32.2 g/dL Normal 29.9-35.2 [facility] Comment on above: Performed By: #### C BC #### [facility] [address] [place] [address] Dr. Alexia Huber MCV (RBC) [Entitic vol] 100.0 fL Critically high 81.0-99.0 [facility] Comment on above: Performed By: #### C BC #### [facility] [address] [place] [address] Dr. Alexia Huber MONO # 1.0 103/ul Critically high 0.3-0.8 [facility] Comment on above: Performed By: #### C BC #### [facility] [address] [place] [address] Dr. Alexia Huber Monocytes/100 WBC (Bld) 7.4 % Normal 1.7-12.0 [facility] Comment on above: Performed By: #### C BC #### [facility] [address] [place] [address] Dr. Alexia Huber NEUT # 9.1 103/ul Critically high 1.4-6.5 [facility] Comment on above: Performed By: #### C BC #### [facility] [address] [place] [address] [address] Alexia Huber Neutrophils/100 WBC (Bld) 68.1 % Normal 43.0-75.0 [facility] Comment on above: Performed By: #### C BC #### [facility] [address] [place] [address] [address] Alexia Huber Platelet mean volume (Bld) [Entitic vol] 9.4 fL Critically low 9.5-13.5 [facility] Comment on above: Performed By: #### C BC #### [facility] [address] [place] [address] [address] Alexia Huber PLT 406 103/ul Normal 150-450 [facility] Comment on above: Performed By: #### C BC #### [facility] [address] [place] [address] Dr. Alexia Huber RBC 3.95 106/ul Critically low 4.20-5.40 [facility] Comment on above: Performed By: #### C BC #### [facility] [address] [place] [address] [address] Alexia Huber WBC 13.3 103/ul Critically high 4.0-11.0 [facility] Comment on above: Performed By: #### C BC #### [facility] [address] [place] [address] [address] STROKE HEAD WOon [...] TAYLOR RINALDI Date: 2022-09-18 23:31 Normal [facility] PROF CHEM 8 (BAS METB)on Anion gap [Moles/Vol] 12.2 mmol/L Normal [facility] Comment on above: Performed By: #### B DAVIS, CMADM #### [facility] [address] [place] [address] [address] Alexia Huber Calcium [Mass/Vol] 9.2 mg/dL Normal 8.5-10.1 [facility] Comment on above: Performed By: #### B DAVIS, CMADM #### [facility] [address] [place] [address] [address] Alexia Huber Chloride [Moles/Vol] 101 mmol/L Normal 98-107 [facility] Comment on above: Performed By: #### B DAVIS, CMADM #### [facility] [address] [place] [address] [address] Alexia Huber CO2 [Moles/Vol] 28.5 mmol/L Normal 21.0-32.0 [facility] Comment on above: Performed By: #### B DAVIS, CMADM #### [facility] [address] [place] [address] [address] Alexia Huber Creatinine [Mass/Vol] 0.64 mg/dL Normal 0.55-1.02 [facility] Comment on above: Performed By: #### B DAVIS, CMADM #### [facility] [address] [place] [address] [address] Alexia Huber EGFR-AF TOGOLESE >60 Normal >=60 [facility] Comment on above: Performed By: #### B MP, CMADM #### [facility] [address] [place] [address] [address] Alexia Huber EGFR-NON AF TOGOLESE >60 Normal >=60 [facility] Comment on above: Performed By: #### B MP, CMADM #### [facility] [address] [place] [address] [address] Alexia Huber Glucose [Mass/Vol] 99 mg/dL Normal 74-106 [facility] Comment on above: Performed By: #### B MP, CMADM #### [facility] [address] [place] [address] [address] Alexia Huber Potassium [Moles/Vol] 3.7 mmol/L Normal 3.5-5.1 [facility] Comment on above: Performed By: #### B DAVIS, CMADM #### [facility] [address] [place] [address] [address] Alexia Huber Sodium [Moles/Vol] 138 mmol/L Normal 136-145 [facility] Comment on above: Performed By: #### B DAVIS, CMADM #### [facility] [address] [place] [address] [address] Alexia Huber Urea nitrogen [Mass/Vol] 13.0 mg/dL Normal 7.0-18.0 [facility] Comment on above: Performed By: #### B DAVIS, CMADM #### [facility] [address] [place] [address] [address] Alexia Huber Urea nitrogen/Creatinine [Mass ratio] 20.3 mg/mg [facility] Comment on above: Performed By: #### B DAVIS, CMADM #### [facility] [address] [place] [address] [address] Alexia Huber PAP ACOG PANEL 2: 30 to 65on 01-02-2022 . . Normal [facility] Comment on above: Result Comment: Perf ormed at: BA Performed By: #### [id number] #### [facility] [address] [place] [address] [address] Alexia Huber Age Gdln ACOG Testing 30-65 [facility] Comment on above: Performed By: #### 4 [id number] #### [facility] [address] [place] [address] [address] Alexia Huber DIAGNOSIS: Comment Normal [facility] Comment on above: Result Comment: NEGA TIVE FOR INTRAEPITHELIAL LESION OR MALIGNANCY. Performed at: BA Performed By: #### [id number] #### [facility] [address] [place] [address] [address] Alexia Huber HPV Aptima Negative Normal Negative [facility] Comment on above: Result Comment: This nucleic acid amplification test detects fourteen high-risk HPV types (16,18,31,33,35,39,45,51,52,56,58,59,66,68) without differentiation. Performed at: =G Performed By: #### [id number] #### [facility] [address] [place] [address] Dr. Alexia Huber Methodology: Comment Normal [facility] Comment on above: Result Comment: This liquid based ThinPrep(R) pap test was screened with the use of an image guided system. Performed at: WB Performed By: #### [id number] #### [facility] [address] [place] [address] Dr. Alexia Huber Note: Comment Normal [facility] Comment on above: Result Comment: The Pap smear is a screening test designed to aid in the detection of premalignant and malignant conditions of the uterine cervix. It is not a diagnostic procedure and should not be used as the sole means of detecting cervical cancer. Both false-positive and false-negative reports do occur. . Performed at: WB Performed By: #### [id number] #### [facility] [address] [address] [address] Alexia Huber Performed by: Comment Normal [facility] Comment on above: Result Comment: Jacob Huertas Labor Gang Supervisor (ASCP) Performed at: BA Performed By: #### [id number] #### [facility] [address] [place] [address] [address] Alexia Huber Specimen adequacy: Comment Normal [facility] Comment on above: Result Comment: Sati sfactory for evaluation. No endocervical component is identified. Performed at: Performed By: #### [id number] #### [facility] [address] [place] [address] Dr. Alexia Huber Vital Signs Date Time Vital Sign Value Performing Clinician Edie vance 03-17-2024 08:42-0400 Diastolic blood pressure 72 mm[Hg] Cornelius NILL [facility] 03-17-2024 08:42-0400 Heart rate 58 /min Cornelius NILL [facility] 03-17-2024 08:42-0400 Mean blood pressure 88 mm[Hg] Cornelius NILL [facility] 03-17-2024 08:42-0400 Respiratory rate 20 /min Cornelius NILL [facility] 03-17-2024 08:42-0400 SaO2% (BldA) [Mass fraction] 100 % Cornelius NILL [facility] 03-17-2024 08:42-0400 Systolic blood pressure 121 mm[Hg] Cornelius NILL [facility] 03-17-2024 08:30-0400 Diastolic blood pressure 84 mm[Hg] Cornelius NILL [facility] 03-17-2024 08:30-0400 Heart rate 64 /min Cornelius NILL [facility] 03-17-2024 08:30-0400 Mean blood pressure 94 mm[Hg] Cornelius NILL [facility] 03-17-2024 08:30-0400 Respiratory rate 20 /min Cornelius NILL [facility] 03-17-2024 08:30-0400 SaO2% (BldA) [Mass fraction] 99 % Cornelius NILL [facility] 03-17-2024 08:30-0400 Systolic blood pressure 114 mm[Hg] Cornelius NILL [facility] 03-17-2024 08:25-0400 Diastolic blood pressure 70 mm[Hg] Cornelius NILL [facility] 03-17-2024 08:25-0400 Heart rate 58 /min Cornelius NILL [facility] 03-17-2024 08:25-0400 Mean blood pressure 82 mm[Hg] Cornelius NILL [facility] 03-17-2024 08:25-0400 Respiratory rate 16 /min Cornelius NILL [facility] 03-17-2024 08:25-0400 SaO2% (BldA) [Mass fraction] 97 % Cornelius NILL [facility] 03-17-2024 08:25-0400 Systolic blood pressure 106 mm[Hg] Cornelius NILL [facility] 03-17-2024 08:17-0400 Body temperature 97.7 [degF] Cornelius NILL [facility] 03-17-2024 08:10-0400 Respiratory rate 12 /min Cornelius NILL [facility] 03-17-2024 07:58-0400 Respiratory rate 12 /min Cornelius NILL [facility] 03-17-2024 07:41-0400 Blood Pressure Location Cornelius NILL [facility] 03-17-2024 07:41-0400 Body temperature 97.88 [degF] Cornelius NILL [facility] 12-25-2023 14:11-0400 Blood Pressure Location Cornelius NILL [facility] 12-25-2023 14:11-0400 Diastolic blood pressure 76 mm[Hg] Cornelius STRONGL [facility] 12-25-2023 14:11-0400 Heart rate 72 /min Cornelius NILL [facility] 12-25-2023 14:11-0400 Respiratory rate 16 /min Cornelius NILL [facility] 12-25-2023 14:11-0400 Systolic blood pressure 116 mm[Hg] Cornelius NILL [facility] Encounters Encounter Date Encounter Type Care Provider Facility Start: 03-17-2024 End: 03-17-2024 ambulatory Cornelius STRONGL Facility:[facility] Start: 03-17-2024 End: 03-17-2024 Patient encounter procedure Cornelius R NILL [facility] Start: 12-25-2023 End: 12-25-2023 amb[facility] Start: 12-25-2023 End: 12-25-2023 Patient encounter procedure Cornelius R NILL [facility] Start: 12-13-2023 ambulatory Cornelius BAI Facility: [facility] [...] BAI Payers Date Payer Category Payer Unknown [id number] 2.16.84 [id number] 1970 Unknown [id number] 2.16.84 [id number] 1970 Unknown [id number] 2.16.84 [id number] 1970 Unknown [id number] 2.16.8 [id number] 1970 Unknown [id number] 2.16.8 [id number] 1957 Unknown [id number] Social History Date Type Detail Facility Start: 12-25-2023 Tobacco smoking status Never s moked tobacco (finding) [facility] Tobacco smoking status Never [facility] Sex Assigned At Female [facility] Functional Status Date Assessment Result Facility 03-17-2024 Functional Status N/A [facility] 12-25-2023 Functional Status N/A [facility] Clinical Notes 12-25-2023 to 03-17-2024 Note Date & Type Note Facility 03-17-2024 Evaluation + Plan note Extrac jn from: Title:ANES Post-operative Note - General Author: Vincent Meeks Jr., DO Date:03/17/24 Plan Transfer/Discharge: Transfer/Discharge Discharge when meets criteria ( From PACU to Ambulatory Surgery Unit, and To home ). Extracted from: Title:ANES Pre-operative Note - Endo Author:Vincent Arteaga Jr., DO Date:03/17/24 Plan [place] [employer]hesi[employer] (ASA) physical status classification: Class II. Anesthetic Preoperative Plan: Anesthesia General, and -TIVA. [facility] 08-05-2024 Hospital Discharge instructions Patient Education 03/17/2024 08:19:06 Colonoscopy, Care After Surgery Lázaro (CUSTOM) Colonoscopy Care After Surgery Please read the instructions outlined below and refer to this sheet in the next few weeks. These discharge instructions provide you with general information on [facility] Your doctor may also give you [...] unsweetened, w/added ascorbic acid 1 cup 0.5 [place] 1 cup 0.7 Vegetables Cooked Green beans 1 cup 4.0 Carrots 1/2 cup sliced 2.3 Peas 1 cup 8.8 Potato (baked, with skin) 1 medium potato 3.8 Raw Brainard (with peel) 1 cucumber 1.5 Lettuce 1 [...] 8.7 Peanuts 1/2 cup 7.9 Chart from [facility] 2013. SEEK IMMEDIATE MEDICAL CARE IF: You [...] Nutrient Database for Standard Reference. Available at http://www.Americanflat.usda.gov/fnic/foodcomp/search/. Information adapted from: [facility] Patient Information 2009 [employer]. [facility] 2012 http://www.Kamego/contents/udgixecorgis-tkqjcnh-vrgjqv-the-basics Follow Up Care 12/25/2023 14:43:31 With:Cornelius BAI Address: [address] [place] [address], [address] [place] [phone]- Business (1) When: only if needed [facility] 08-05-2024 NoteColonoscopy Procedure Report Patient: CARINE STEVENS Age: 53 years Sex: Female : 1970 Associated Diagnoses: None Author: Conrelius BAI MD Pre-Procedure Procedure Date 03/17/2024 08:20:00 [...] for screening for malignant neoplasm of colon ([id number] Z12.11, Discharge, Medical). Course: Progressing as expected. Recommendations: Repeat colonoscopy:: In 10 years. Follow-up:: if problems/questions. Diet:: Regular diet. Medication resumption:: Continue current medications. Return to activities:: After 24 hours. Education and Follow-up: Counseled: [facility]Other Comment: Missing Attachment - attachment storage system not supported [id number] Can be viewed in source system Missing Attachment - attachment storage system not supported [id number] Can be viewed in source systemMissing Attachment - attachment storage system not supported [id number] Can be viewed in source systemMissing Attachment - attachment storage system not supported [id number] Can be viewed in source systemMissing Attachment - attachment storage system not supported [id number] Can be viewed in source [phone] NoteProgress Note-Physician Patient: CARINE STEVENS Age: 53 years Sex: Female : 1970 Associated Diagnoses: None Author: Vincent Meeks Jr., DO Postoperative Information Postoperative disposition: Postoperative disposition: Home. Optimetrix number: Optimetrix number [id number]. Anesthetic utilized: General. Physical Examination VS/Measurements Pain Assessment: Controlled. General: Awake, Alert, Appropriate. Respiratory: Adequate air exchange, Non-labored. Cardiovascular: Stable, Normal peripheral perfusion. Neurological: Neurologic exam at baseline. No changes.. Assessment Anesthetic outcome No anesthetic complications noted. No nausea/vomiting. Review / Management Condition: Stable. Plan Transfer/Discharge: Transfer/Discharge Discharge when meets criteria ( From PACU to Ambulatory Surgery Unit, and To home ).[facility]Result Comment: Electronically Signed By: Vincent Meeks Jr., DO\.br\Date and Time Signed: 03/17/24 08:47 [id number] NotePatient Education - Text Colonoscopy Care After [...] unsweetened, w/added ascorbic acid 1 cup 0.5 [place] 1 cup 0.7 Vegetables Cooked Green beans 1 cup 4.0 Carrots 1/2 cup sliced 2.3 Peas 1 cup 8.8 Potato (baked, with skin) 1 medium potato 3.8 Raw Brain[place] (with peel) 1 cucumber 1.5 Lettuce 1 [...] 8.7 Peanuts 1/2 cup 7.9 [facility] (more content not included)...[facility]-2024 NoteProgress Note-Physician Patient: CARINE STEVENS [...] All Problems BMI 26.0-26.9,adult / SNOMED CT 9585211900 / Confirmed Over weight / SNOMED CT 043081549 / Confirmed Pure hypercholesterolemia / SNOMED CT 465054596 / Confirmed Screening for malignant neoplasm of colon / SNOMED CT 227186936 / Confirmed Canceled: Overweight / SNOMED CT 492841312 Histories Past Medical History: No active or resolved past medical history items have been selected or recorded. Procedure history: Cholecystectomy (42649395). Arthroscopy of knee (469241992). Vaginal hysterectomy (783987325). Cervical biopsy (24543387). Social History Social & Psychosocial Habits Alcohol [...] Respirations are non-labored. Cardiovascular: Regular rhythm. Plan [place] [employer] Anesthesiologists (ASA) physical status classification: Class II. Anesthetic Preoperative Plan: Anesthesia General, and -TIVA.[facility]:Result Comment: Electronically Signed By: Vincent Meeks Jr., DO\Date and Time Signed: 03/17/24 07:02 [id number] NoteChief Complaint consultation for colonoscopy HPI Staff [...] neoplasm of female breast: Mother. Uterine cancer: Mother.[facility]:Result Comment: Electronically Signed By: BHUMIKA ROCKWELL, Cornelius Tsang\Date and Time Signed: 12/25/23 14:57 EDTEvaluation + Plan note Future Appointments Appointment Date:03/17/2024 08:00:00 AM Scheduled Provider: Location:[facility] Appointment Type:Surgery FT [facility] Hospital course Narrative No data available for this section [facility] Hospital Discharge instructions No data available for this section [facility] Progress note No data available for this section [facility] Summary Purpose Family History No Family History Records Found No data available for this section No data available for this section No Family History Records Found Advance Directives No Advanced Directives Records FoundNo Advanced Directives Records Found Additional Source Comments INFORMATION SOURCE (unrecogn ized section and content) DATE CREATED AUTHOR 12/24/2022 [facility] DATE CREATED AUTHOR AUTHOR'S ORGANIZ ATION 03/22/2024 [facility] Patient Care team informatio n (unrecognized section and content) Personnel Name: Veronica Ramirez MD Address: Address: [address] [place] [address] Personnel Name: Veronica Ramirez MD Address: Address: [address] [place] [address] FOR RECORDS PERTAINING TO PATIENTS WHO ARE [...] BE BASED ON THE PRIMARY CLINICAL RECORDS. [facility]. provides no warranty or guarantee of the accuracy or completeness of information in this document.
--- OUTSIDE RECORDS SUMMARY | 2025-01-28 09:17 | XMS_ITS | Patient Health Record ---
Author Organization [facility] in [place] Address [address] [place] [address] Care Team Providers Care Special Population Paraprofessional Name Role Phone Michael Flores Primary Care Provider Allergies No Known Allergies Results Component Value Reference Range Notes CT head/brain wo con Reviewed date:01/22/2025 06:35:16 PM Interpretation: Performing Lab: Notes/Report: Source Facility: [place] [address] CT Scan Report Signed Patient: ACRINE WALL MR#: [id number] : 1970 Acct:[id number] Age/Sex: 54 / F ADM Date: 01/22/25 Loc: CT Attending Dr: Veronica Flores M.D. Ordering Physician: Veronica Flores M.D. Date of Service: 01/22/25 Procedure(s): CT head/brain wo con Accession Number(s): [id number] cc: Veronica Flores M.D. [place] [id number] Patient Name: CARINE WALL MRN: [id number] date: 1970 Sex: F Assigned Patient Location: CT Current Patient Location: CT Accession/Order Number: [id number] Exam Date: 01/22/2025 17:11 Report Date: 01/22/2025 17:13 At the request of: VERONICA FLORES MD Procedure: CT head/brain wo con Unenhanced head CT TECHNIQUE: Contiguous axial imaging of the head. The CT exam was performed using one or more the following dose reduction techniques: Automated exposure control, adjustment of the MA and/or Kv according to patient size, or use of the iterative reconstruction technique. COMPARISON: 09/18/2022 HISTORY: Headache and dizziness. Head injury VENTRICLES: Within normal limits ATROPHY: None BRAIN PARENCHYMA: Adequate guevara-white matter differentiation identified. HEMORRHAGE: None HERNIATION: No mass effect or herniation INFARCTION: No recent vascular distribution infarction is seen. EXTRA-AXIAL FLUID COLLECTIONS None MIDBRAIN: Unremarkable MAGGIE: Unremarkable MEDULLA: Unremarkable SINUSES: Unremarkable ORBITS: Grossly unremarkable MASTOIDS: Unremarkable BONY STRUCTURES Intact ADDITIONAL FINDINGS: CT/CT head/brain wo con IMPRESSION: No acute findings. Impression dictated by: Darwin Lomeli M.D. 01/22/2025 5:13 PM Dictation Location: [place] [address] Electronically authenticated by: [id number] Y Date: 01/22/2025 17:13 Dictated By: Darwin Lomeli D.O. Signed By: 01/22/251714 DD/ 12 TD/TT: Sports Medicine Coordinator: [place] [address] CT Scan Report Signed Patient: LANNY WALL MR#: [id number] : 1970 Acct:[id number] Age/Sex: 54 / F ADM Date: 01/22/25 Loc: CT Attending Dr: Veronica Flores M.D. Ordering Physician: Veronica Flores M.D. Date of Service: 01/22/25 Procedure(s): CT hea d/brain wo con Accession Number(s): [id number] cc: Veronica Flores M.D. [place] [id number] Patient Name: CARINE WALL MRN: [id number] date: 1970 Sex: F Assigned Patient Location: CT Current Patient Location: CT Accession/Order Numb er: [id number] Exam Date: 01/22/2025 17:11 Report Date: 01/22/2025 17:13 At the request of: VERONICA FLORES MD Procedure: CT head/brain wo con Unenhanced head CT TECHNIQUE: Contiguou s axial imaging of the head. The CT exam was performed using one or more th e following dose reduction techniques: Automated exposure control, adjustment of the MA and/or Kv according to patient size, or use of the iterative recons truction technique. COMPARISON: 09/18/2022 HISTORY: Headache an d dizziness. Head injury VENTRICLES: Within n ormal limits ATROPHY: None BRAIN PARENCHYMA: Ad equate guevara-white matter differentiation identified. HEMORRHAGE: None HERNIATION: No mass effect or herniation INFARCTION: No recen t vascular distribution infarction is seen. EXTRA-AXIAL FLUID CO LLECTIONS None MIDBRAIN: Unremarkable MAGGIE: Unremarkable MEDULLA: Unremarkable SINUSES: Unremarkable ORBITS: Grossly unremarkable MASTOIDS: Unremarkable BONY STRUCTURES Intact ADDITIONAL FINDINGS: C T/CT head/brain wo con IMPRESSION: No acute findings. Impression dictated by: Darwin Lomeli M.D. 01/22/2025 5:13 PM Dictation Location: [place] [address] Electronically authe nticated by: [id number] Y Date: 01/22/2025 17:13 Dictated By: Darwin Lomeli D.O. Signed By: 01/22/251714 DD/ 12 TD/TT: Sports Medicine Coordinator: Reason For Referral No Information Medications Medication [...] Problem Status W/U Status Risk Notes Problem Cervical radiculopathy (60963347) Cervical radiculopathy (M54.12) Active confirmed Problem Blurry vision (243747930) Blurry vision (H53.8) Active confirmed Problem Well adult (292125363) Well adult (Z00.00) Active confirmed Problem Shingles (4226754) Shingles (B02.9) Active confirmed Problem Concussion injury of brain (906482075) Concussion (S06.0X9A) Active confirmed Problem Peripheral vertigo (46293834) Peripheral vertigo (H81.399) Active confirmed Problem Derangement of knee (55403638) Knee derangement (M23.90) Active confirmed Problem 36083531 Pure hypercholesterole vidya, unspecified (E78.00) Active confirmed Problem 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 Problem Parotid sialolithiasis (869304778) 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) Active confirmed Vital Signs Blood pressure diastolic 86 mm Hg 01/28/2025 Height 63 in 01/28/2025 Blood pressure systolic 118 mm Hg 01/28/2025 Weight 155.4 lbs 01/28/2025 BMI 27.52 kg/m2 01/28/2025 Encounters Encounter Location Date Provider Diagnosis [address] [address] 01/22/2025 [facility] [address] [address] 01/28/2025 [facility] Blurry vision H53.8 and Cervical radiculopathy M54.[address] [address] 01/22/2025 [facility] Concussion S06.0X9A Assessments Encounter Date Diagnosis (ICD Code) Assessment Notes Treatment Notes Treatment Clinical Notes Section Notes 01/22/2025 Concussion (ICD-10 - S06.0X9A) 01/28/2025 Blurry vision (ICD-10 - H53.8) Persistent symptoims - ct neg - needs MRI - wiht Altere mental, and vison changes need to rule out MS - needs MRI withand without contrast 01/28/2025 Cervical radiculopathy (ICD-10 - M54.12) 01/28/2025 Other Take NSAIDs as needed for pain. Discussed avoiding headache triggers and improiving diet and sleep habits to prevent headaches. Plan Of Treatment Pending Test Test Name [...] Brain w/o Contrast 01/22/2025 LIPID PROFILE 05/08/2023 MRI BRAIN WO W CON 01/28/2025 MRI CSPINE WO CON 01/28/2025 THYROID PANEL (T4/TSH/FREE T3) 3 THYROID PANEL (T4/TSH/FREE T3) 4 XR cervical spine 2-3V 01/28/2025 Insurance Providers Payer Name Payer Address Payer Phone Subscriber Number Group Number Insured Name Patient Relationship to Insured Coverage Start Date Coverage End Date [employer] [address] [place] [address] [id number] Ethan Wall Spouse - patient is the spouse of the insured 3 Medications Administered Medication Instructions Date of Administration Dosage Notes Ketorolac Tromethamine 01/28/2025 60 mg Orphenadrine Citrate 01/28/2025 60 mg Triamcinolone 40 mg/ml 01/28/2025 120 mg Medical (General) History Medical History History ICD Code KNEE DERANGEMENT LEIOMYOMA VERTIGO SIALOLITHIASIS Surgical History Surgery Date(Month/Year) colonoscopy 8-24 Knee scopes- right Hysterectomy- partial CHOLECYSTECTOMY
== END 2025-01-28 09:12 | disposition home or self-care (01) ==
LOC: RAD 09:13
PROVIDERS: PCP Family Medicine; Visit Provider Family Medicine
DX: H53.8 Other visual disturbances (principal); M50.30 Other cervical disc degeneration, unspecified cervical region
CPT/HCPCS: 72040